=== PATIENT | male | born 1940 | race Caucasian/White ===

== ENCOUNTER → 2016-07-14 | Outpatient (CLI) | payer BC ==
[~2016-07-14] MED LIST: ATOR-26 PO; DIGO0.122 PO; FERR325T74 PO; GLIM1TAB PO; METF-384 PO; PRT40 PO; SERT-234 PO
[2016-07-14 12:46] LABS: BASO % 0.4 %; BASO ABS # 0.03 K/uL (0-0.2); COMPLETE YES; EOS % 3.9 %; HEMATOCRIT 42.2 % (42-52); IG% 0.4 %; LYMPH % 17.6 %; LYMPH ABS # 1.36 K/uL (1.2-3.4); MEAN CELL VOLUME 87.7 fL (80-100); MEAN CORPUSCULAR HEMOGLOBIN 29.3 pg (25-34); MEAN CORPUSCULAR HGB CONC 33.4 g/dl (32-36); MEAN PLATELET VOLUME 9.4 fL (7.4-10.4); MONO % 5.3 %; NEUT % 72.4 %; PLATELET COUNT 234 K/uL (130-400); RED BLOOD COUNT 4.81 M/uL (4.7-6.1); WHITE BLOOD COUNT 7.74 K/uL (4.8-10.8)
[2016-07-14 13:02] LABS: ESTIMATED AVERAGE GLUCOSE 163 mg/dl; HA1C FLAG Normal (Normal)
[2016-07-14 13:06] LABS: BLOOD UREA NITROGEN 16 mg/dl (7-18); BUN/CREATININE RATIO 14.8 (10-20); CALCIUM 9.9 mg/dl (8.5-10.1); CARBON DIOXIDE 26 mmol/L (21-32); CHLORIDE 103 mmol/L (98-107); GLUCOSE 157 mg/dl (70-99); POTASSIUM 4.6 mmol/L (3.5-5.1); SODIUM 139 mmol/L (136-145)
--- NOTE | 2016-07-21 06:23 | CODING QUERY MEDICAL NECESSITY ---
SUPPORTING DIAGNOSIS NEEDED A supporting diagnosis is required for the test/procedure performed on this patient in order for us to be reimbursed by the patient's insurance. Please provide a supporting diagnosis for the following test/procedure listed below next to the test name along with your signature. *If there is no additional diagnosis for this patient that would support the following test/procedure please document that below next to the test/procedure. Test(s)/Procedure(s) that require a supporting diagnosis: DOS 07/14 * Hba1c DIAGNOSIS: Provider Signature: Date: Thank you Corrine Oakes Health Information Management Once completed, please kindly fax back to [phone] For questions please call [phone]
== END | disposition home or self-care (01) ==
LOC: C.LABBFT 09:12
PROVIDERS: ATTEND Internal Medicine Geriatric Medicine
DX: I10 Essential (primary) hypertension (principal); R19.7 Diarrhea, unspecified; E55.9 Vitamin D deficiency, unspecified; E21.3 Hyperparathyroidism, unspecified; D64.9 Anemia, unspecified; E11.9 Type 2 diabetes mellitus without complications

== ENCOUNTER → 2016-11-16 | Outpatient (CLI) | payer BC ==
[~2016-11-16] MED LIST changes: +CHOL1000 PO; +FERR27TA5 PO; +GLIM4TAB2 PO; +LISI40TA PO; +LNX125 PO; +WARF2.5T8 PO
[2016-11-16 12:47] LABS: BASO % 0.3 %; BASO ABS # 0.02 K/uL (0-0.2); COMPLETE YES; EOS % 2.9 %; HEMATOCRIT 40.2 % (42-52); IG% 0.1 %; LYMPH % 17.3 %; LYMPH ABS # 1.19 K/uL (1.2-3.4); MEAN CELL VOLUME 90.3 fL (80-100); MEAN CORPUSCULAR HEMOGLOBIN 29.2 pg (25-34); MEAN CORPUSCULAR HGB CONC 32.3 g/dl (32-36); MEAN PLATELET VOLUME 9.6 fL (7.4-10.4); MONO % 5.1 %; NEUT % 74.3 %; PLATELET COUNT 207 K/uL (130-400); RED BLOOD COUNT 4.45 M/uL (4.7-6.1); WHITE BLOOD COUNT 6.89 K/uL (4.8-10.8)
[2016-11-16 13:15] LABS: ESTIMATED AVERAGE GLUCOSE 174 mg/dl; HA1C FLAG Normal (Normal)
[2016-11-16 13:39] LABS: BLOOD UREA NITROGEN 21 mg/dl (7-18); BUN/CREATININE RATIO 18.9 (10-20); CARBON DIOXIDE 25 mmol/L (21-32); CHLORIDE 107 mmol/L (98-107); GLUCOSE 289 mg/dl (70-99); POTASSIUM 5.1 mmol/L (3.5-5.1); SODIUM 138 mmol/L (136-145)
[2016-11-16 13:43] LABS: CALCIUM 9.9 mg/dl (8.5-10.1)
== END | disposition home or self-care (01) ==
LOC: C.LABBFT 09:46
PROVIDERS: ATTEND Internal Medicine Geriatric Medicine
DX: I48.2 Chronic atrial fibrillation (principal); Z79.01 Long term (current) use of anticoagulants; E11.9 Type 2 diabetes mellitus without complications

== ENCOUNTER → 2016-11-18 | Outpatient (CLI) | payer BC ==
[~2016-11-18] MED LIST changes: -CHOL1000 PO; -FERR27TA5 PO; -GLIM4TAB2 PO; -LISI40TA PO; -LNX125 PO; -WARF2.5T8 PO
== END | disposition home or self-care (01) ==
LOC: C.LABBFT 10:45
PROVIDERS: ATTEND Internal Medicine Geriatric Medicine
DX: I10 Essential (primary) hypertension (principal); E83.52 Hypercalcemia; E11.9 Type 2 diabetes mellitus without complications; D64.9 Anemia, unspecified; E21.3 Hyperparathyroidism, unspecified

== ENCOUNTER → 2017-01-15 | Outpatient (CLI) | payer BC | END | disposition home or self-care (01) | LOC: C.PATHSPEC 13:03 | PROVIDERS: ATTEND Dermatology | DX: L57.0 Actinic keratosis (principal) ==

== ENCOUNTER → 2017-03-03 | Outpatient (CLI) | payer BC ==
--- NOTE | 2017-03-03 09:42 | DIAGNOSTIC IMAGING REPORT ---
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 COMPARISON STUDY: Chest CT 09/09/2007. FINDINGS: Moderate right sternoclavicular joint osteoarthritis demonstrated by subchondral sclerosis, cartilage space narrowing, and marginal osteophytes. The left sternoclavicular joint is within normal limits. No subluxation. No fractures identified within the visualized clavicles. Poststernotomy changes. IMPRESSION: Moderate right sternoclavicular joint osteoarthritis. Electronically signed by: Federico Goldsmith M.D. 03/03/2017 9:41 AM Dictated Date/Time: 03/03/2017 9:37 AM
== END | disposition home or self-care (01) ==
LOC: C.RADBC 09:10
PROVIDERS: ATTEND Internal Medicine Geriatric Medicine
DX: M19.019 Primary osteoarthritis, unspecified shoulder (principal)

== ENCOUNTER → 2017-04-21 | Outpatient (CLI) | payer BC ==
[~2017-04-21] MED LIST changes: +CHOL1000 PO; +FERR27TA5 PO; +GLIM4TAB2 PO; +LISI40TA PO; +LNX125 PO; +WARF2.5T8 PO
[2017-04-21 13:18] LABS: BASO % 0.3 %; BASO ABS # 0.03 K/uL (0-0.2); COMPLETE YES; EOS % 3.2 %; IG% 0.2 %; LYMPH % 13.7 %; LYMPH ABS # 1.18 K/uL (1.2-3.4); MEAN CELL VOLUME 90.9 fL (80-100); MEAN CORPUSCULAR HEMOGLOBIN 29.9 pg (25-34); MEAN CORPUSCULAR HGB CONC 32.9 g/dl (32-36); MEAN PLATELET VOLUME 9.4 fL (7.4-10.4); MONO % 6.7 %; NEUT % 75.9 %; PLATELET COUNT 193 K/uL (130-400); RED BLOOD COUNT 4.51 M/uL (4.7-6.1); WHITE BLOOD COUNT 8.63 K/uL (4.8-10.8)
[2017-04-21 13:52] LABS: ESTIMATED AVERAGE GLUCOSE 163 mg/dl; HA1C FLAG Normal (Normal)
[2017-04-21 13:58] LABS: ALT/SGPT 34 U/L (12-78); AST/SGOT 21 U/L (15-37); BLOOD UREA NITROGEN 18 mg/dl (7-18); BUN/CREATININE RATIO 15.3 (10-20); CALCIUM 9.9 mg/dl (8.5-10.1); CARBON DIOXIDE 26 mmol/L (21-32); CHLORIDE 105 mmol/L (98-107); CHOLESTEROL 86 mg/dl (0-200); CREATININE 1.19 mg/dl (0.60-1.40); GLUCOSE 142 mg/dl (70-99); POTASSIUM 4.4 mmol/L (3.5-5.1); SODIUM 136 mmol/L (136-145); TRIGLYCERIDES 144 mg/dl (0-150); VERY LOW DENSITY LIPOPROT CALC 29 mg/dl
[2017-04-21 14:08] LABS: ALB/GLOB RATIO 1.1 (0.9-2); ALKALINE PHOSPHATASE 112 U/L (45-117); CHOLESTEROL/HDL RATIO 2.3; HDL CHOLESTEROL 38 mg/dl; LDL CHOLESTEROL CALCULATED 19 mg/dl
== END | disposition home or self-care (01) ==
LOC: C.LABBC 11:57
PROVIDERS: ATTEND Internal Medicine Geriatric Medicine
DX: I10 Essential (primary) hypertension (principal); G31.84 Mild cognitive impairment of uncertain or unknown etiology; D64.9 Anemia, unspecified; Z79.01 Long term (current) use of anticoagulants; I48.2 Chronic atrial fibrillation; E55.9 Vitamin D deficiency, unspecified; E11.9 Type 2 diabetes mellitus without complications

== ENCOUNTER → 2017-06-11 | Outpatient (CLI) | payer BC ==
[~2017-06-11] MED LIST changes: -DIGO0.122 PO; -FERR325T74 PO; -GLIM1TAB PO; -METF-384 PO; -PRT40 PO
[2017-06-11 16:39] LABS: INR 2.7 (0.9-1.1)
== END | disposition home or self-care (01) ==
LOC: C.LABBFT 13:25
PROVIDERS: ATTEND Internal Medicine Cardiovascular Disease
DX: I48.2 Chronic atrial fibrillation (principal)

== ENCOUNTER → 2017-06-23 | Day surgery (SDC) | payer BC ==
[2017-04-22 14:00] VITALS: Ht 170.2 cm; Wt 70.5 kg
[~2017-06-23] VITALS: Ht 170.2 cm; Wt 70.5 kg
[~2017-06-23] MED LIST changes: +500ML BSS 0.3ML EPI 1:1000PF IRRIG ONE; +ACETAMINOPHEN 325 MG TAB PO PRN; +AMVISC PLUS 0.8ML SYRINGE INT OCU ONE; +ATROPINE SULFATE 0.1 MG/ML 5ML SYR IV PRN; +AcetaZOLAMIDE 250 MG TAB PO SCH; +BETAXOLOL HCL 0.25% OP SUSP PER DROP CHARGE OPL SCH; +BRIMONIDINE TART 0.2% OP SOLN PER DROP CHARGE ONE; +BSS FLUSH ONE; +CYCLOPENTOLATE HCL 1% OP SOLN PER DROP CHARGE OPL SCH; +ENDOCOAT 0.85ML SYRINGE INT OCU ONE; +EpHEDrine SULFATE INJ 50 MG/ML AMP IV PRN; +EpINEphrine INJ 1MG/ML AMP 1 MG/ML AMP ONE; +LACTATED RINGER'S 1000ML 500 ML IV SCH; +LIDOCAINE 4% OP SOLN DROP CHARGE ONE; +LIDOCAINE 4% OP SOLN DROP CHARGE OPL SCH; +LIDOCAINE HCL 1% MPF 2 ML VIAL ONE; +MIDAZOLAM HCL 1 MG/ML 2ML VIAL ONE; +MIX: 4ML BSS 1ML EPI 1:1000 PF INSTIL ONE; +MOXIFLOXACIN OPH SOLN PER DROP CHARGE ONE; +MOXIFLOXACIN OPH SOLN PER DROP CHARGE OPL SCH; +OCUCOAT 1 ML SOLN IO ONE; +PHENYLEPHRINE HCL 2.5% OP SOLN PER DROP CHARGE OPL SCH; +POVIDONE-IODINE OP SOLN 30 ML BTL ONE; +PROPARACAINE 0.5% OP SOLN PER DROP CHARGE OPL SCH; +TOBRAMYCIN/DEXAMETHASONE OPH OINT PER APPLN CHARGE ONE; +TROPICAMIDE 1% OP SOLN PER DROP CHARGE OPL SCH
--- NOTE | 2017-06-23 07:25 | History & Physical Bridge - SC ---
H&P Re-Evaluation Bridge Note: I have examined the patient, reviewed the History & Physical and in the interval since the performance of the History & Physical I have noted the following changes of clinical significance: No changes noted
[2017-06-23] MEDS: TROPICAMIDE 1% OP SOLN PER DROP CHARGE OPL SCH ×2 (08:39→08:44)
[2017-06-23] MEDS: PHENYLEPHRINE HCL 2.5% OP SOLN PER DROP CHARGE OPL SCH ×2 (08:39→08:43)
[2017-06-23] MEDS: CYCLOPENTOLATE HCL 1% OP SOLN PER DROP CHARGE OPL SCH ×2 (08:40→08:45)
[2017-06-23] MEDS: MOXIFLOXACIN OPH SOLN PER DROP CHARGE OPL SCH ×2 (08:41→08:54)
--- NOTE | 2017-06-23 09:17 | [facility] Operative Report ---
Operative Report Date of Service Jun 23, 2017. Operative Report 1. PREOPERATIVE DIAGNOSIS: Senile nuclear cataract, left eye. 2. POSTOPERATIVE DIAGNOSIS: Senile nuclear cataract, left eye. 3. PROCEDURE: Phacoemulsification of left cataract with posterior chamber lens implant, type [employer], model MI60L, power +20.5 diopters. ANESTHESIA: Local standby. SURGEON: Dr. Alston. COMPLICATIONS: None. OPERATING TIME: 10 minutes. 4. OPERATION AND FINDINGS: DESCRIPTION OF PROCEDURE: The left pupil was dilated. The anesthetic was administered using a topical technique. The left eye was prepped and draped. A speculum was placed. A clear corneal incision was formed. The chamber was filled with Amvisc Plus and Endocoat. Epinephrine solution was used. A paracentesis was placed. A capsulorrhexis was performed. The nucleus was hydrodissected. The lens was removed with phacoemulsification. Time was 6.34 seconds. The aspiration unit was used to remove the cortex. The capsule was filled with Amvisc Plus. The lens implant was folded and placed into the capsule. The incision was hydrated. The Amvisc was aspirated. The wound was secure. The chamber was deep. The pupil was round. Brimonidine, TobraDex ointment and Vigamox solution were placed. The speculum was removed. The patient was returned to the Recovery Room in stable condition. I attest to the content of the Intraoperative Record and any orders documented therein. Any exceptions are noted below. The scribe's documentation has been prepared in my presence, under my direction and personally reviewed by me in its entirety. I confirm that the note above accurately reflects all work, treatment, procedures, and medical decision making performed by me. I personally scribed for Jean Alston M.D. (CB) on 06/23/17 at 09:17. Electronically submitted by Destiny Hooper ([email or web address]).
--- NOTE | 2017-06-23 09:20 | Discharge Instructions-SurgCtr ---
Discharge Instructions Date of Service Jun 23, 2017. Visit Reason for Visit: Cataract Left Eye Discharge Discharge Diagnosis / Problem: lens implant left implant Discharge Goals Goal(s): Improve function Activity Recommendations Activity Limitations: resume your previous activity Lifting Limitations: no more than 10 pounds Exercise/Sports Limitations: gradually increase as tolerated May Resume Sexual Activity: when tolerated Shower/Bathe: tomorrow Driving or Machine Use: resume 1 day after discharge Anesthesia . Post Anesthesia Instructions: If you have had General Anesthesia or IV Sedation: * Do not drive today. * Resume driving when surgeon permits. * Do not make important decisions or sign legal documents today. * Call surgeon for: 1. Temperature elevations greater than 101 degrees F. 2. Uncontrollable pain. 3. Excessive bleeding. 4. Persistent nausea and vomiting. 5. Medication intolerance (nausea, vomiting or rash). * For nausea and vomiting use only clear liquids such as: tea, soda, bouillon until nausea subsides, then gradually increase diet as tolerated. * If you have any concerns or questions, call your surgeon's office. If physician is unavailable and it is an emergency, call 911 or go to the nearest emergency room. . Instructions / Follow-Up Instructions / Follow-Up ACTIVITY RECOMMENDATIONS: * Light activities. * Mild irritation and blurred vision are common for the first few days. * You may walk outside, read, watch television. * Redness around the white part of the eye is common. MEDICATIONS: Resume previous medications unless instructed otherwise by your surgeon. * Take white Diamox (Acetazolamide) tablet at 1 pm today. Start all eye drops at 1 pm today: * Eye drops (today and tomorrow): Prednisone - one drop in operative eye every 3 hours while awake Ofloxacin - one drop in operative eye every 3 hours while awake SPECIAL CARE INSTRUCTIONS: * Tape plastic shield over eye to sleep at night. Call your doctor at with any concerns or problems. FOLLOW UP VISIT: Follow-up with Dr Alston at [facility] as scheduled. Diet Recommendations Home Diet: no limitations Procedures Procedures Performed: Left Cataract Phacoemulsification With Intraocular Lens Implant Pending Studies Studies pending at discharge: no Medical Emergencies . Who to Call and When: Medical Emergencies: If at any time you feel your situation is an emergency, please call 911 immediately. . Non-Emergent Contact Non-Emergency issues call your: Corporate Intern Call Non-Emergent contact if: your pain is not controlled [phone] . . "Provider Documentation" section prepared by Jean Alston. .
[2017-06-23 09:22] VITALS: TEMP 36.6
--- NOTE | 2017-06-23 09:33 | Anesthesia Progress Nt - [facility] ---
Anesthesia Post Op Note Date & Time Jun 23, 2017 at 09:33 Vital Signs Pain Intensity: 0 Vital Signs Past 12 Hours Date Time Temp Pulse Resp B/P (MAP) Pulse Ox O2 Delivery O2 Flow Rate FiO2 06/23/17 09:22 36.6 103 18 111/67 (82) 94 Room Air 06/23/17 08:29 36.5 84 16 122/68 (86) 97 Room Air Notes Mental Status: alert / awake / arousable, participated in evaluation Pt Amnestic to Procedure: Yes Nausea / Vomiting: adequately controlled Pain: adequately controlled Airway Patency, RR, SpO2: stable & adequate BP & HR: stable & adequate Hydration State: stable & adequate Anesthetic Complications: no major complications apparent
[2017-06-23 09:55] VITALS: BP 134/87; PULSE 98; O2SAT 97
== END | disposition home or self-care (01) ==
LOC: X.SURG 07:44
PROVIDERS: ATTEND Specialist
DX: H25.12 Age-related nuclear cataract, left eye (principal); E11.36 Type 2 diabetes mellitus with diabetic cataract; Z98.41 Cataract extraction status, right eye; E78.5 Hyperlipidemia, unspecified; I48.91 Unspecified atrial fibrillation; Z88.0 Allergy status to penicillin; Z95.1 Presence of aortocoronary bypass graft; Z87.891 Personal history of nicotine dependence; Z79.899 Other long term (current) drug therapy; Z79.01 Long term (current) use of anticoagulants

== ENCOUNTER → 2017-12-30 | Outpatient (CLI) | payer BC ==
[~2017-12-30] MED LIST changes: -500ML BSS 0.3ML EPI 1:1000PF IRRIG ONE; -ACETAMINOPHEN 325 MG TAB PO PRN; -AMVISC PLUS 0.8ML SYRINGE INT OCU ONE; -ATROPINE SULFATE 0.1 MG/ML 5ML SYR IV PRN; -AcetaZOLAMIDE 250 MG TAB PO SCH; -BETAXOLOL HCL 0.25% OP SUSP PER DROP CHARGE OPL SCH; -BRIMONIDINE TART 0.2% OP SOLN PER DROP CHARGE ONE; -BSS FLUSH ONE; -CYCLOPENTOLATE HCL 1% OP SOLN PER DROP CHARGE OPL SCH; -ENDOCOAT 0.85ML SYRINGE INT OCU ONE; -EpHEDrine SULFATE INJ 50 MG/ML AMP IV PRN; -EpINEphrine INJ 1MG/ML AMP 1 MG/ML AMP ONE; -LACTATED RINGER'S 1000ML 500 ML IV SCH; -LIDOCAINE 4% OP SOLN DROP CHARGE ONE; -LIDOCAINE 4% OP SOLN DROP CHARGE OPL SCH; -LIDOCAINE HCL 1% MPF 2 ML VIAL ONE; -MIDAZOLAM HCL 1 MG/ML 2ML VIAL ONE; -MIX: 4ML BSS 1ML EPI 1:1000 PF INSTIL ONE; -MOXIFLOXACIN OPH SOLN PER DROP CHARGE ONE; -MOXIFLOXACIN OPH SOLN PER DROP CHARGE OPL SCH; -OCUCOAT 1 ML SOLN IO ONE; -PHENYLEPHRINE HCL 2.5% OP SOLN PER DROP CHARGE OPL SCH; -POVIDONE-IODINE OP SOLN 30 ML BTL ONE; -PROPARACAINE 0.5% OP SOLN PER DROP CHARGE OPL SCH; -TOBRAMYCIN/DEXAMETHASONE OPH OINT PER APPLN CHARGE ONE; -TROPICAMIDE 1% OP SOLN PER DROP CHARGE OPL SCH
== END | disposition home or self-care (01) ==
LOC: C.LABBFT 08:14
PROVIDERS: ATTEND Internal Medicine Cardiovascular Disease
DX: E78.5 Hyperlipidemia, unspecified (principal)

== ENCOUNTER 2020-11-02 10:11 | Inpatient (IN) ==
[2020-11-02] MEDS ORDERED: SODIUM CHLORIDE 0.9% 500 ML IV STA (10:41)
[2020-11-02 11:18] LABS: Basophils # (auto) 0.02 K/uL (0-0.2); Basophils % (auto) 0.3 %; Eosinophils # (auto) 0.34 K/uL (0-0.5); Eosinophils % (auto) 4.6 %; Hematocrit (blood only) 36.6 % (42-52); Hemoglobin 12.5 g/dL (14.0-18.0); Immature Granulocytes # (auto) 0.04 K/uL (0.00-0.02); Immature Granulocytes % (auto) 0.5 %; Lymphocytes # (auto) 1.15 K/uL (1.2-3.4); Lymphocytes % (auto) 15.7 %; Mean Corpuscular Hemoglobin 30.5 pg (25-34); Mean Corpuscular Hgb Conc 34.2 g/dL (32-36); Mean Corpuscular Volume 89.3 fL (80-100); Mean Platelet Volume 9.1 fL (7.4-10.4); Monocytes # (auto) 0.34 K/uL (0.11-0.59); Monocytes % (auto) 4.6 %; Neutrophils # (auto) 5.43 K/uL (1.4-6.5); Neutrophils % (auto) 74.3 %; Platelet Count 202 K/uL (130-400); RDW Coefficient of Variation 12.2 % (11.5-14.5); RDW Standard Deviation 39.5 fL (36.4-46.3); White Blood Count 7.32 K/uL (4.8-10.8)
--- NOTE | 2020-11-02 11:21 | XRay Report ---
XR chest 1V portable CLINICAL HISTORY: confusion, falls COMPARISON STUDY: 04/12/2019 FINDINGS: There are postsurgical changes of midline sternotomy and aortic valve replacement. Heart is mildly enlarged. There is slight interstitial prominence without evidence of overt failure. There is no lobar consolidation. There are no pleural effusions. Arthritic changes are present within the joaquina ulders.[ IMPRESSION: No active disease in the chest. ACT 112: Negative or not required by law. Electronically signed by: Cayetano Gonzalez M.D. 11/02/2020 11:19 AM
--- NOTE | 2020-11-02 11:32 | CT Scan Report ---
CT head/brain wo con CLINICAL HISTORY: fall, confusion COMPARISON STUDY: 04/12/2019 TECHNIQUE: Axial CT of the brain is performed from the vertex to the skull base. IV contrast was not administered for this examination. A dose lowering technique was utilized adhering to the principles of ALARA. CT DOSE: 537.48 mGy.cm FINDINGS: No intra or extra-axial mass lesions are visualized. There is no CT evidence of acute cortical infarc tion. There is no evidence of midline shift. There is no acute hemorrhage. No calvarial fractures ar e visualized. There are patchy white matter hypodensities likely on a small vessel basis. There are basal ganglia l acunar infarcts. There is equivocal lacunar infarct within the right thalamus versus partial volume a veraging with the lateral ventricle. 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 There is no evidence of pathologic ventricular dilatation. There is no evidence of acute sinusitis IMPRESSION: 1. No acute intracranial findings. 2. Multifocal lacunar infarcts 3. If there is pedicle concern over the presence of an acute infarction, an MRI could be obtained in follow-up. ACT 112: Negative or not required by law. Electronically signed by: Cayetano Gonzalez M.D. 11/02/2020 11:30 AM
[2020-11-02 11:44] LABS: Appearance Urine Clear (Clear); Bacteria Urine Automated Negative (Negative); Bilirubin Urine Negative (Negative); Blood Urine Negative (Negative); Cast Urine Automated 0 /lpf (0-5); Color Urine Yellow; Glucose Urine UA 3+ (Negative); Ketones Urine Negative (Negative); Leukocyte Esterase Urine Trace (Negative); Nitrite Urine Negative (Negative); Protein Urine Negative (Negative); RBC Urine Automated 0-4 /hpf (0-4); Specific Gravity Urine 1.027 (1.000-1.030); Urobilinogen Urine Negative (Negative)
[2020-11-02 11:50] LABS: Albumin Globulin Ratio 0.9 (0.9-2); Albumin Level 3.4 gm/dl (3.4-5.0); BUN Creatinine Ratio 24.3 (10-20); Bilirubin,Total 0.4 mg/dl (0.2-1); Calcium 9.9 mg/dl (8.5-10.1); Creatinine Clr Calc Pharmacy 31.3 ml/min; Est GFR (African American) 44.5 ml/min; Est GFR (Non-African American) 38.4 ml/min; Magnesium 1.9 mg/dl (1.8-2.4); Potassium 4.8 mmol/L (3.5-5.1); Thyroid Stimulating Hormone 1.31 uIu/ml (0.300-4.500); Total Protein 7.4 gm/dl (6.4-8.2)
[2020-11-02 12:03] LABS: Beta-Hydroxybutyrate 1.19 mg/dl (0.2-2.81)
--- NOTE | 2020-11-02 12:41 | Emergency Department Note ---
Impression & Plan Multi-infarct dementia, CKD (chronic kidney disease), Hyperglycemia due to type 2 diabetes mellitus, On apixaban therapy ED Provider Note NAME: ELVA SPENCE AGE: 80 SEX: M ARRIVES VIA: Walk-In INFORMANT: Patient, ED PROVIDER(S): Korey Espino MD CHIEF COMPLAINT: Confusion, recurrent falls, unsafe at home. PLAN: Disposition: Admit MEDICAL DECISION MAKING: The patient is a pleasant 80-year-old gentleman with a past medical history of dementia, hypertension, hyperlipidemia, atrial fibrillation on Eliquis, cerebral atherosclerosis, who presents to the emergency department accompanied by his son concern for worsening dementia over the past couple of weeks where they report he has been walking out of his apartment at night and has fallen couple times this week and has to call family to go pick them up. This morning his brother found the patient walking out of the apartment again thinking he had to go to work. The patient is alert and oriented to self and knows where he is but admits he is confused about these situations and does not recall them. Otherwise is no report of any fevers, chills, cough, congestion, GI or symptoms. The son is concerned that he has a safety risk living by himself at this time. He and his four other siblings live in the area feel the patient needs to be in a facility able to care for him with his dementia. On arrival the patient is no distress, afebrile stable vital signs. He is pleasantly confused but alert and oriented to self and place. He has no focal neurologic deficits. EKG shows sinus rhythm with incomplete left bundle branch block with ST and T wave abnormality that is similar to prior. No overt ST elevation. no sgarbossa criteria. WBC and platelets within normal limits. H/H 12.5/36.6 without recent values for comparison. Chemistry without metabolic acidosis. Creatinine 1.6, proximal to prior range of values with BUN/creatinine> 20 suggestive of component of dehydration. Initial BSG was 406 in the setting of the patient's admitted dietary indiscretions. Repeat PSG following IV fluids was 350. Electrolytes without significant abnormality. TSH within normal limits. UA without convincing evidence of infection with epithelial cells present. COVID-19 RNA, RADHA test was negative. CT of the head was performed and demonstrates small vessel disease as well as prior basal ganglion and cerebellar lacunar infarcts with question of new lacunar infarct within the right thalamus. Upon further discussion with the patient's son does seem that the patient's worsening de mentia/confusion and ambulatory dysfunction have been overtly noticeable in the past 2 weeks and so given the patient's imaging which raises suspicion for possible new CVA reasonable to meet the patient for further evaluation. Suspect patient may need PT OT and further discussion with family regarding placement given their concerns for safety and report of their families inability to appropriately safety plan. The son and the patient, albeit reluctantly, agrees with plan for admission. Will defer additional treatment of glucose to admitting team. Case was discussed with Dr. Clements, [facility] hospitalist, who will evaluate the patient for admission. Triage Nursing notes reviewed and agree them. Prior medical records reviewed Vital Signs: reviewed and remarkable for no significant abnormalities Differential diagnosis: Infection, dehydration, metabolic abnormality, hypo/hyperglycemia, electrolyte disturbance, anemia, hypoxia, cardiac sources, intracerebral event, toxicologic, neurologic, as well as other pathologies. ER treatment provided: See below. Diagnostics interpreted by me: ECG: Sinus rhythm with occasional PVCs, 85 bpm, incomplete left bundle branch block, ST and T wave abnormality, no overt ST elevation/no sgarbossa criteria. Cardiac Monitoring: An order for continuous cardiac monitoring was placed and demonstrated Sinus rhythm with occasional PVCs, 85 bpm,. Laboratory studies: See below Imaging studies: See below Consultation(s): Case was discussed with Dr. Clements, [facility] hospitalist, who will evaluate the patient for admission. HPI: The patient is a pleasant 80-year-old gentleman with a past medical history of dementia, hypertension, hyperlipidemia, atrial fibrillation on Eliquis, ce rebral atherosclerosis, who presents to the emergency department accompanied by his son concern for worsening dementia over the past couple of weeks where they report he has been walking out of his apartment at night and has fallen couple times this week and has to call family to go pick them up. This morning his brother found the patient walking out of the apartment again thinking he had to go to work. The patient is alert and oriented to self and knows where he is but admits he is confused about these situations and does not recall them. Otherwise is no report of any fevers, chills, cough, congestion, GI or symptoms. The son is concerned that he has a safety risk living by himself at this time. He and his four other siblings live in the area feel the patient needs to be in a facility able to care for him with his dementia. ROS: See above HPI for pertinent positives & negatives. A total of 10 systems reviewed and were otherwise negative. PAST MEDICAL HISTORY:See Below PAST SURGICAL HISTORY:See Below FAMILY HISTORY:See Below SOCIAL HISTORY:See Below HOME MEDICATIONS:See Below ALLERGIES:See Below VITALS:See Below PHYSICAL EXAMINATION: GENERAL: Awake, alert, well-appearing, in no distress HENT: Normocephalic, atraumatic. Oropharynx with dry mucous membranes and otherwise unremarkable. EYES: Normal conjunctiva. Sclera non-icteric. EOMI. No nystamgus. PEARRL. NECK: Supple. No nuchal rigidity. FROM. No JVD. RESPIRATORY: Clear to auscultation. CARDIAC: Regular rate, normal rhythm. Extremities warm and well perfused. Pulses equal. ABDOMEN: Soft, non-distended. No tenderness to palpation. No rebound or guarding. No masses. RECTAL: Deferred. MUSCULOSKELETAL: Chest examination reveals no tenderness. The back is symmetrical on inspection without obvious abnormality. There is no CVA tenderness to palpation. No joint edema. LOWER EXTREMITIES: Calves are equal size bilaterally and non-tender. No edema. No discoloration. NEURO: Alert to self and place. Speech is fluent. Pleasantly confused. No overt focal sensory or motor deficits noted. 5/5 strength and SILT x 4 extremities. Intact finger to nose. SKIN: No rash or jaundice noted. Korey Espino MD Past Med/Surg History Medical History (Updated 11/03/20 @ 01:36 by Korey Espino MD) Anemia CAD (coronary artery disease) Cerebral atherosclerosis Chronic anticoagulation Dyslipidemia Gastroesophageal reflux disease GI (gastrointestinal bleed) Hypercalcemia Hyperparathyroidism Hypertension Insomnia Lower back pain Mild cognitive impairment Osteoarthritis of sternoclavicular joint Permanent atrial fibrillation 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 Vitamin D deficiency Surgical History 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) S/P aortic valve replacement S/P CABG (coronary artery bypass graft) S/P cataract surgery S/P tonsillectomy S/P total knee arthroplasty Family History Mother Coronary heart disease Myocardial infarction Father Coronary heart disease Myocardial infarction Brother Dementia Denies family history of Ovarian cancer Prostate cancer Breast cancer Colorectal cancer Social History Smoking Status: Never smoker Age Quit Using Tobacco: 42; Second Hand Exposure: No; Hx Alcohol Use: Yes Hx Substance Use: No Preferred Language: Grenadian Communication Ability: Effective Visual Impairment: No Limitations Hearing Ability: Normal Laborer/Key Man Required: No Beliefs That Will Affect Care: None marital status: / Current Living Situation: Alone Current Living Situation Comment: Home alone current occupational status: retired Feels Safe at Home: Yes Safety Concerns: Feels Safe At This Time Childhood Exposure to Second-Hand Smoke: Yes during the past year weight has: remained stable Dental Care, Regularly: No Physical Activity Frequency: Daily Seatbelt Use: always Sunscreen Use: No Assistive Devices: Denture - Upper, Denture - Lower and Glasses Allergies Allergies Allergy/AdvReac Type Severity Reaction Status Date / Time Penicillins Allergy Mild Rash Verified 11/02/20 11:38 metformin Allergy Unknown Diarrhea Verified 11/02/20 11:38 metoprolol Allergy Unknown Confusion Verified 11/02/20 11:38 zolpidem [From Ambien] Allergy Unknown Verified 11/02/20 11:38 Home Meds Home Medications Medication Instructions Recorded Confirmed acetaminophen 500 mg tablet 1,000 mg PO TID PRN #90 tab 12/20/18 11/02/20 blood sugar diagnostic #10 ea 12/20/18 04/24/20 cholecalciferol (vitamin D3) 25 1,000 units PO QAM cap 12/20/18 11/02/20 mcg (1,000 unit) capsule ferrous sulfate 325 mg (65 mg 325 mg PO QAM tab 12/20/18 11/02/20 iron) tablet lancets #50 ea 12/20/18 07/25/20 atorvastatin 40 mg PO QAM 11/02/20 11/02/20 glipizide 20 mg PO QAM 11/02/20 11/02/20 sertraline 100 mg PO QAM 11/02/20 11/02/20 Previous Rx's Medication Instructions Recorded lisinopril 40 mg tablet 40 mg PO QAM #90 tab 12/18/19 sitagliptin 100 mg tablet 100 mg PO QAM #30 tab 03/21/20 apixaban 2.5 mg tablet 2.5 mg PO BID #60 tab 04/22/20 digoxin 125 mcg (0.125 mg) tablet 125 mcg PO QAM #90 tab 04/24/20 Results & Data (ED) Vital Signs Vital Signs - 24 hr 11/02/20 10:13 11/02/20 11:06 11/02/20 11:10 Temperature 36.9 C Temperature Source Temporal Artery Scan Pulse Rate 93 H 78 82 Pulse Rate from SpO2 Sensor 79 82 Pulse Rhythm Regular Pulse Strength Normal Respiratory Rate 18 21 25 H Respiratory Effort / Characteristics Non-Labored Spontaneous Respiratory Depth Normal Respiratory Pattern Regular Blood Pressure 139/65 149/68 H Blood Pressure Mean 89 95 Blood Pressure Position Sitting Pulse Oximetry 97 94 94 Oxygen Delivery Method Room Air Room Air Room Air Sepsis Recent Fever Within 48 Hours No Sepsis New/Unexplained Change in Mental Status N/A Sepsis Action Taken by Nursing No Action Required 11/02/20 11:30 11/02/20 11:31 11/02/20 11:32 Temperature Temperature Source Pulse Rate 88 86 84 Pulse Rate from SpO2 Sensor 87 86 84 Pulse Rhythm Pulse Strength Respiratory Rate 21 17 20 Respiratory Effort / Characteristics Respiratory Depth Respiratory Pattern Blood Pressure 157/72 H Blood Pressure Mean 100 Blood Pressure Position Pulse Oximetry 99 97 97 Oxygen Delivery Method Room Air Room Air Room Air Sepsis Recent Fever Within 48 Hours Sepsis New/Unexplained Change in Mental Status Sepsis Action Taken by Nursing 11/02/20 11:36 11/02/20 12:00 11/02/20 12:01 Temperature Temperature Source Pulse Rate 82 86 Pulse Rate from SpO2 Sensor 82 84 Pulse Rhythm Pulse Strength Respiratory Rate 22 21 Respiratory Effort / Characteristics Respiratory Depth Respiratory Pattern Blood Pressure 127/66 Blood Pressure Mean 86 Blood Pressure Position Pulse Oximetry 97 95 95 Oxygen Delivery Method Room Air Room Air Room Air Sepsis Recent Fever Within 48 Hours Sepsis New/Unexplained Change in Mental Status Sepsis Action Taken by Nursing 11/02/20 12:32 11/02/20 12:33 11/02/20 12:34 Temperature Temperature Source Pulse Rate 79 82 82 Pulse Rate from SpO2 Sensor 76 87 86 Pulse Rhythm Pulse Strength Respiratory Rate 23 20 20 Respiratory Effort / Characteristics Respiratory Depth Respiratory Pattern Blood Pressure 161/72 H Blood Pressure Mean 101 Blood Pressure Position Pulse Oximetry 97 97 97 Oxygen Delivery Method Sepsis Recent Fever Within 48 Hours Sepsis New/Unexplained Change in Mental Status Sepsis Action Taken by Nursing 11/02/20 13:00 11/02/20 13:01 Temperature Temperature Source Pulse Rate 78 88 Pulse Rate from SpO2 Sensor 83 81 Pulse Rhythm Pulse Strength Respiratory Rate 13 19 Respiratory Effort / Characteristics Respiratory Depth Respiratory Pattern Blood Pressure 124/67 Blood Pressure Mean 86 Blood Pressure Position Pulse Oximetry 97 97 Oxygen Delivery Method Sepsis Recent Fever Within 48 Hours Sepsis New/Unexplained Change in Mental Status Sepsis Action Taken by Nursing Laboratory Data Attestation: I reviewed the patient's lab results. Result diagrams: 11/02/20 11:03 11/02/20 11:03 Lab Results 11/02/20 11/02/20 11/02/20 Range/Units 11:03 11:03 11:30 WBC 7.32 (4.8-10.8) K/uL RBC 4.10 L (4.7-6.1) M/uL Hgb 12.5 L (14.0-18.0) g/dL Hct 36.6 L (42-52) % MCV 89.3 (80-100) fL MCH 30.5 (25-34) pg MCHC 34.2 (32-36) g/dL RDW Std Deviation 39.5 (36.4-46.3) fL RDW Coeff of Karlos 12.2 (11.5-14.5) % Plt Count 202 (130-400) K/uL MPV 9.1 (7.4-10.4) fL Immature Gran % (Auto) 0.5 % Neut % (Auto) 74.3 % Lymph % (Auto) 15.7 % Hood % (Auto) 4.6 % Eos % (Auto) 4.6 % Baso % (Auto) 0.3 % Neut # (Auto) 5.43 (1.4-6.5) K/uL Lymph # (Auto) 1.15 L (1.2-3.4) K/uL Hood # (Auto) 0.34 (0.11-0.59) K/uL Eos # (Auto) 0.34 (0-0.5) K/uL Baso # (Auto) 0.02 (0-0.2) K/uL Immature Gran # (Auto) 0.04 H (0.00-0.02) K/uL Sodium 133 L (136-145) mmol/L Potassium 4.8 (3.5-5.1) mmol/L Chloride 101 (98-107) mmol/L Carbon Dioxide 25 (21-32) mmol/L Anion Gap 7.0 (3-11) BUN 40 H (7-18) mg/dl Creatinine 1.64 H (0.6-1.4) mg/dl Est Cr Clr Drug Dosing 31.3 ml/min Est GFR ( Amer) 44.5 ml/min Est GFR (Non-Af Amer) 38.4 ml/min BUN/Creatinine Ratio 24.3 H (10-20) Glucose 406 H* (70-99) mg/dl POC Glucose (70-99) mg/dl Calcium 9.9 (8.5-10.1) mg/dl Phosphorus 3.0 (2.5-4.9) mg/dl Magnesium 1.9 (1.8-2.4) mg/dl Total Bilirubin 0.4 (0.2-1) mg/dl AST 16 (15-37) U/L ALT 20 (12-78) U/L Alkaline Phosphatase 119 H (45-117) U/L Troponin I (0-0.045) ng/ml Total Protein 7.4 (6.4-8.2) gm/dl Albumin 3.4 (3.4-5.0) gm/dl Globulin 4.0 (2.5-4.0) gm/dl Albumin/Globulin Ratio 0.9 (0.9-2) Beta-Hydroxybutyric Acd 1.19 (0.2-2.81) mg/dl TSH 1.310 (0.300-4.500) uIu/ml Urine Color Yellow Urine Appearance Clear (Clear) Urine pH 5.0 (4.5-7.5) Ur Specific [place] 1.027 (1.000-1.030) Urine Protein Negative (Negative) Urine Glucose (UA) 3+ H (Negative) Urine Ketones Negative (Negative) Urine Blood Negative (Negative) Urine Nitrite Negative (Negative) Urine Bilirubin Negative (Negative) Urine Urobilinogen Negative (Negative) Ur Leukocyte Esterase Trace H (Negative) Urine WBC (Auto) 5-10 H (0-5) /hpf Urine RBC (Auto) 0-4 (0-4) /hpf U Hyaline Cast (Auto) 0 (0-5) /lpf U Epithel Cells (Auto) 10-20 H (0-5) /lpf Urine Bacteria (Auto) Negative (Negative) COVID-19 Eval Order SARS-CoV-2, RNA, NAAT (NEGATIVE) 11/02/20 11/02/20 11/02/20 Range/Units 11:35 11:35 12:25 WBC (4.8-10.8) K/uL RBC (4.7-6.1) M/uL Hgb (14.0-18.0) g/dL Hct (42-52) % MCV (80-100) fL MCH (25-34) pg MCHC (32-36) g/dL RDW Std Deviation (36.4-46.3) fL RDW Coeff of Karlos (11.5-14.5) % Plt Count (130-400) K/uL MPV (7.4-10.4) fL Immature Gran % (Auto) % Neut % (Auto) % Lymph % (Auto) % Hood % (Auto) % Eos % (Auto) % Baso % (Auto) % Neut # (Auto) (1.4-6.5) K/uL Lymph # (Auto) (1.2-3.4) K/uL Hood # (Auto) (0.11-0.59) K/uL Eos # (Auto) (0-0.5) K/uL Baso # (Auto) (0-0.2) K/uL Immature Gran # (Auto) (0.00-0.02) K/uL Sodium (136-145) mmol/L Potassium (3.5-5.1) mmol/L Chloride (98-107) mmol/L Carbon Dioxide (21-32) mmol/L Anion Gap (3-11) BUN (7-18) mg/dl Creatinine (0.6-1.4) mg/dl Est Cr Clr Drug Dosing ml/min Est GFR ( Amer) ml/min Est GFR (Non-Af Amer) ml/min BUN/Creatinine Ratio (10-20) Glucose (70-99) mg/dl POC Glucose 351 H* (70-99) mg/dl Calcium (8.5-10.1) mg/dl Phosphorus (2.5-4.9) mg/dl Magnesium (1.8-2.4) mg/dl Total Bilirubin (0.2-1) mg/dl AST (15-37) U/L ALT (12-78) U/L Alkaline Phosphatase (45-117) U/L Troponin I (0-0.045) ng/ml Total Protein (6.4-8.2) gm/dl Albumin (3.4-5.0) gm/dl Globulin (2.5-4.0) gm/dl Albumin/Globulin Ratio (0.9-2) Beta-Hydroxybutyric Acd (0.2-2.81) mg/dl TSH (0.300-4.500) uIu/ml Urine Color Urine Appearance (Clear) Urine pH (4.5-7.5) Ur Specific [place] (1.000-1.030) Urine Protein (Negative) Urine Glucose (UA) (Negative) Urine Ketones (Negative) Urine Blood (Negative) Urine Nitrite (Negative) Urine Bilirubin (Negative) Urine Urobilinogen (Negative) Ur Leukocyte Esterase (Negative) Urine WBC (Auto) (0-5) /hpf Urine RBC (Auto) (0-4) /hpf U Hyaline Cast (Auto) (0-5) /lpf U Epithel Cells (Auto) (0-5) /lpf Urine Bacteria (Auto) (Negative) COVID-19 Eval Order [facility] SARS-CoV-2, RNA, NAAT NEGATIVE (NEGATIVE) 11/02/20 Range/Units 12:29 WBC (4.8-10.8) K/uL RBC (4.7-6.1) M/uL Hgb (14.0-18.0) g/dL Hct (42-52) % MCV (80-100) fL MCH (25-34) pg MCHC (32-36) g/dL RDW Std Deviation (36.4-46.3) fL RDW Coeff of Karlos (11.5-14.5) % Plt Count (130-400) K/uL MPV (7.4-10.4) fL Immature Gran % (Auto) % Neut % (Auto) % Lymph % (Auto) % Hood % (Auto) % Eos % (Auto) % Baso % (Auto) % Neut # (Auto) (1.4-6.5) K/uL Lymph # (Auto) (1.2-3.4) K/uL Hood # (Auto) (0.11-0.59) K/uL Eos # (Auto) (0-0.5) K/uL Baso # (Auto) (0-0.2) K/uL Immature Gran # (Auto) (0.00-0.02) K/uL Sodium (136-145) mmol/L Potassium (3.5-5.1) mmol/L Chloride (98-107) mmol/L Carbon Dioxide (21-32) mmol/L Anion Gap (3-11) BUN (7-18) mg/dl Creatinine (0.6-1.4) mg/dl Est Cr Clr Drug Dosing ml/min Est GFR ( Amer) ml/min Est GFR (Non-Af Amer) ml/min BUN/Creatinine Ratio (10-20) Glucose (70-99) mg/dl POC Glucose (70-99) mg/dl Calcium (8.5-10.1) mg/dl Phosphorus (2.5-4.9) mg/dl Magnesium (1.8-2.4) mg/dl Total Bilirubin (0.2-1) mg/dl AST (15-37) U/L ALT (12-78) U/L Alkaline Phosphatase (45-117) U/L Troponin I 0.017 (0-0.045) ng/ml Total Protein (6.4-8.2) gm/dl Albumin (3.4-5.0) gm/dl Globulin (2.5-4.0) gm/dl Albumin/Globulin Ratio (0.9-2) Beta-Hydroxybutyric Acd (0.2-2.81) mg/dl TSH (0.300-4.500) uIu/ml Urine Color Urine Appearance (Clear) Urine pH (4.5-7.5) Ur Specific [place] (1.000-1.030) Urine Protein (Negative) Urine Glucose (UA) (Negative) Urine Ketones (Negative) Urine Blood (Negative) Urine Nitrite (Negative) Urine Bilirubin (Negative) Urine Urobilinogen (Negative) Ur Leukocyte Esterase (Negative) Urine WBC (Auto) (0-5) /hpf Urine RBC (Auto) (0-4) /hpf U Hyaline Cast (Auto) (0-5) /lpf U Epithel Cells (Auto) (0-5) /lpf Urine Bacteria (Auto) (Negative) COVID-19 Eval Order SARS-CoV-2, RNA, NAAT (NEGATIVE) Administered Medications Apixaban (Apixaban 2.5 Mg Tab) 2.5 mg PO BID JSAON Stop: 12/02/20 20:59 Last Admin: 11/02/20 20:44 Dose: Not Given Documented by: [id number] Insulin Aspart (Insulin Aspart 100 Units/Ml 3 Ml Pen) 0 units SC ACHS JASON Stop: 12/02/20 16:29 Last Admin: 11/02/20 20:13 Dose: 2 units Documented by: [id number] Cosigned by: [id number] Admin: 11/02/20 17:44 Dose: 6 units Documented by: [id number] Cosigned by: [id number] Insulin Aspart (Insulin Aspart 100 Units/Ml 3 Ml Pen) 0 units SC 0000,0400 JASON Stop: 11/03/20 04:01 Last Admin: 11/02/20 23:22 Dose: 1 units Documented by: [id number] Cosigned by: [id number] Discontinued Medications Haloperidol Lactate (Haloperidol Lactate 5 Mg/Ml 1 Ml Vial) 1 mg IV NOW STA Stop: 11/02/20 18:48 Last Admin: 11/02/20 19:04 Dose: 1 mg Documented by: [id number] Sodium Chloride (Nss) 500 mls @ 999 mls/hr IV .Q31M STA Stop: 11/02/20 11:11 Last Infusion: 11/02/20 12:02 Dose: 0 mls/hr Documented by: [id number] Admin: 11/02/20 11:05 Dose: 999 mls/hr Documented by: [id number] Lorazepam (Lorazepam 0.5 Mg Tab) 0.5 mg PO NOW STA Stop: 11/02/20 16:47 Last Admin: 11/02/20 17:43 Dose: Not Given Documented by: [id number] Lorazepam (Lorazepam 0.5 Mg Tab) Confirm Administered Dose 0.5 mg .ROUTE .STK- MED ONE Stop: 11/02/20 16:51 Last Admin: 11/02/20 16:52 Dose: 0.5 mg Documented by: [id number] Imaging Data Radiologist's Impression: Chest X-Ray 11/02/20 10:42 XR chest 1V portable CLINICAL HISTORY: confusion, falls COMPARISON STUDY: 04/12/2019 FINDINGS: There are postsurgical changes of midline sternotomy and aortic valve replacement. Heart is mildly enlarged. There is slight interstitial prominence without evidence of overt failure. There is no lobar consolidation. There are no pleural effusions. Arthritic changes are present within the shoulders.[ IMPRESSION: No active disease in the chest. ACT 112: Negative or not required by law. Electronically signed by: Cayetano Gonzalez M.D. 11/02/2020 11:[address] 11/02/20 10:44 CT head/brain wo con CLINICAL HISTORY: fall, confusion COMPARISON STUDY: 04/12/2019 TECHNIQUE: Axial CT of the brain is performed from the vertex to the skull base. IV contrast was not administered for this examination. A dose lowering technique was utilized adhering to the principles of ALARA. CT DOSE: 537.48 mGy.cm FINDINGS: No intra or extra-axial mass lesions are visualized. There is no CT evidence of acute cortical infarction. There is no evidence of midline shift. There is no ac kadi hemorrhage. No calvarial fractures are visualized. There are patchy white matter hypodensities likely on a small vessel basis. There are basal ganglia lacunar infarcts. There is equivocal lacunar infarct within the right thalamus versus partial volume averaging with the lateral april tricle. 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 There is no evidence of pathologic ventricular dilatation. There is no evidence of acute sinusitis IMPRESSION: 1. No acute intracranial findings. 2. Multifocal lacunar infarcts 3. If there is pedicle concern over the presence of an acute infarction, an MRI could be obtained in follow-up. ACT 112: Negative or not required by law. Electronically signed by: Cayetano Gonzalez M.D. 11/02/2020 11:30 AM Discharge Plan Visit Data Chief Complaint: Fall Stated Complaint: FALL x3,LEAVING HOUSE WITHOUT ANYONE KNOWING ED Provider: Korey Espino Discharge Problem: Multi-infarct dementia, CKD (chronic kidney disease), Hyperglycemia due to type 2 diabetes mellitus, On apixaban therapy Patient Disposition: Admitted As Inpatient Discharge Instructions Interventions: ED Discharge Assessment Last Done: 11/02/20 15:39 Discharge Problem: Multi-infarct dementia Qualifiers: Dementia behavioral disturbance: with behavioral disturbance Qualified Code(s): F01.51 - Vascular dementia with behavioral disturbance CKD (chronic kidney disease) Qualifiers: Chronic kidney disease stage: unspecified stage Qualified Code(s): N18.9 - Chronic kidney disease, unspecified Hyperglycemia due to type 2 diabetes mellitus Qualifiers: Diabetes mellitus prison insulin use: without terminal system operator use Qualified Code(s): E11.65 - Type 2 diabetes mellitus with hyperglycemia
--- NOTE | 2020-11-02 13:03 | History & Physical Report ---
Date of Service November 02, 2020 Assessment & Plan (1) Multi-infarct dementia: Patient CT scan and history consistent with worsening multi-infarct dementia Will admit patient to monitored bed Check MRI of the brain Check 2D echo Will start low-dose aspirin. Consider Plavix as well Patient has atrial fibrillation and is on Eliquis, will continue this for now PT/OT evaluation Is neurology to evaluate further recommendation (2) Dysphagia: Son mentioned that the patient is having some swallowing difficulty. Patient is denying this We will ask speech to evaluate Dental soft diet for now (3) Permanent atrial fibrillation: This appears to be paroxysmal atrial fibrillation the patient is currently in normal sinus rhythm For now, will continue Eliquis 2.5 mg twice daily. There may be issues with compliance with this PT/OT evaluation as above, suspect patient may be a significant fall risk and will have to reevaluate whether to continue this medication (4) Hypertension: Blood pressure is elevated. Patient is on lisinopril 40 mg daily, will continue Unclear if patient is entirely compliant with this. We will continue to monitor. Consider adding second agent if blood pressure mimi elevated (5) CAD (coronary artery disease): Low-dose aspirin as noted above. 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 Patient is not able to provide much history, history as per son. I Son states patient has had been having ongoing issues with dementia which seems to be worsening. He states on 2 different occasions, the patient is wandered out of the house in the middle of the night and was found lying facedown in the neighborhood. He feels the patient is very unsteady on his feet with any ambulation. He also describes some difficulty with swallowing. On review of outpatient records, some of the patient's medications been discontinued including Aricept as the patient was declining despite treatment. Today, as the son feels the patient is no longer safe without 24-hour supervision which she is unable to provide and would like the patient to be admitted to our facility for eventual placement to dementia unit. The patient herself is awake and alert. He is very confused and cannot answer most questions. He does have a good sense of humor and does not appear to be in any significant distress. Allergies Allergy/AdvReac Type Severity Reaction Status Date / Time Penicillins Allergy Mild Rash Verified 11/02/20 11:38 metformin Allergy Unknown Diarrhea Verified 11/02/20 11:38 metoprolol Allergy Unknown Confusion Verified 11/02/20 11:38 zolpidem [From Ambien] Allergy Unknown Verified 11/02/20 11:38 Home Medications Medication Instructions Recorded Confirmed Type acetaminophen 500 mg tablet 1,000 mg PO TID PRN #90 tab 12/20/18 11/02/20 History blood sugar diagnostic #10 ea 12/20/18 04/24/20 History cholecalciferol (vitamin D3) 25 1,000 units PO QAM cap 12/20/18 11/02/20 History mcg (1,000 unit) capsule ferrous sulfate 325 mg (65 mg 325 mg PO QAM tab 12/20/18 11/02/20 History iron) tablet lancets #50 ea 12/20/18 07/25/20 History lisinopril 40 mg tablet 40 mg PO QAM #90 tab 12/18/19 11/02/20 Rx sitagliptin 100 mg tablet 100 mg PO QAM #30 tab 03/21/20 11/02/20 Rx apixaban 2.5 mg tablet 2.5 mg PO BID #60 tab 04/22/20 11/02/20 Rx digoxin 125 mcg (0.125 mg) tablet 125 mcg PO QAM #90 tab 04/24/20 11/02/20 Rx atorvastatin 40 mg PO QAM 11/02/20 11/02/20 History glipizide 20 mg PO QAM 11/02/20 11/02/20 History sertraline 100 mg PO QAM 11/02/20 11/02/20 History Past Med/Surg History Medical History (Updated 11/02/20 @ 13:05 by Jori Clements DO) Anemia CAD (coronary artery disease) Cerebral atherosclerosis Chronic anticoagulation Dyslipidemia Gastroesophageal reflux disease GI (gastrointestinal bleed) Hypercalcemia Hyperparathyroidism Hypertension Insomnia Lower back pain Mild cognitive impairment Osteoarthritis of sternoclavicular joint Permanent atrial fibrillation 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 Vitamin D deficiency Surgical History 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) S/P aortic valve replacement S/P CABG (coronary artery bypass graft) S/P cataract surgery S/P tonsillectomy S/P total knee arthroplasty Family History Mother Coronary heart disease Myocardial infarction Father Coronary heart disease Myocardial infarction Brother Dementia Denies family history of Ovarian cancer Prostate cancer Breast cancer Colorectal cancer Social History Smoking Status: Former smoker Age Quit Using Tobacco: 42; Second Hand Exposure: No; Hx Alcohol Use: Yes Hx Substance Use: No Preferred Language: Croatian Communication Ability: Effective Visual Impairment: No Limitations Hearing Ability: Normal Revenue Agent Required: No Beliefs That Will Affect Care: None marital status: / Current Living Situation: Alone current occupational status: retired Feels Safe at Home: Yes Childhood Exposure to Second-Hand Smoke: Yes during the past year weight has: remained stable Dental Care, Regularly: No Physical Activity Frequency: Daily Seatbelt Use: always Sunscreen Use: No Review of Systems Review of Systems: Unobtainable due to cognitive status Physical Exam Constitutional: cooperative; no acute distress Neck: trachea midline, no thyromegaly Respiratory: normal respiratory effort Auscultation: lungs clear to auscultation bilaterally; no crackles, no rales, no rhonchi and no wheezes Cardiovascular: Rate/Rhythm: regular rate and regular rhythm Heart Sounds: normal S1 and normal S2; no murmur Gastrointestinal (Abdomen): Inspection/Auscultation: abdomen normal to inspection Percussion/Palpation: abdomen soft; abdomen nontender, no guarding, abdomen not rigid and no hepatosplenomegaly Skin: no rashes, warm and dry Results & Data Results & [facility] ([facility]) Vital Signs (Past 12 Hours) Vital Signs Temp Pulse Resp BP Pulse Ox 11/02/20 12:33 82 20 161/72 H 97 11/02/20 12:32 79 23 97 11/02/20 12:01 86 21 95 11/02/20 12:00 82 22 127/66 95 11/02/20 11:36 97 11/02/20 11:32 84 20 97 11/02/20 11:31 86 17 157/72 H 97 11/02/20 11:30 88 21 99 11/02/20 11:10 82 25 H 94 11/02/20 11:06 78 21 149/68 H 94 11/02/20 10:13 36.9 C 93 H 18 139/[address] head/brain wo con CLINICAL HISTORY: fall, confusion COMPARISON STUDY: 04/12/2019 TECHNIQUE: Axial CT of the brain is performed from the vertex to the skull base. IV contrast was not administered for this examination. A dose lowering technique was utilized adhering to the principles of ALARA. CT DOSE: 537.48 mGy.cm FINDINGS: No intra or extra-axial mass lesions are visualized. There is no CT evidence of acute cortical infarction. There is no evidence of midline shift. There is no acute hemorrhage. No calvarial fractures are visualized. There are patchy white matter hypodensities likely on a small vessel basis. There are basal ganglia lacunar infarcts. There is equivocal lacunar infarct within the right thalamus versus partial volume averaging with the lateral ventricle. 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 There is no evidence of pathologic ventricular dilatation. There is no evidence of acute sinusitis IMPRESSION: 1. No acute intracranial findings. 2. Multifocal lacunar infarcts 3. If there is pedicle concern over the presence of an acute infarction, an MRI could be obtained in follow-up. 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
--- NOTE | 2020-11-02 15:09 | Electrocardiogram Report ---
Test Reason : Blood Pressure : / mmHG Vent. Rate : 085 BPM Atrial Rate : 085 BPM P-R Int : 166 ms QRS Dur : 106 ms QT Int : 342 ms P-R-T Axes : 086 052 229 degrees QTc Int : 406 ms Sinus rhythm with occasional Premature ventricular complexes Incomplete left bundle block Abnormal ECG When compared with ECG of 12-APR-2019 13:57, No significant change was found Confirmed by Jean Velasco ([id number]) on 11/02/2020 3:09:01 PM Referred By: REFERRED SELF Confirmed By:Jean Velasco
[2020-11-02] MEDS ORDERED: GLUCOSE 40% GEL 15 GM TUBE PO PRN (16:12)
[2020-11-02] MEDS ORDERED: GLUCAGON FOR INJ 1 MG VIAL SQ PRN (16:12)
[2020-11-02] MEDS ORDERED: CARBOHYDRATES FOR HYPOGLYCEMIA PO PRN (16:12)
[2020-11-02] MEDS ORDERED: ONDANSETRON INJ 2 MG/ML 2 ML VIAL IV PRN (16:12)
[2020-11-02] MEDS ORDERED: GLUCOSE 10 TABS/TUBE PO PRN (16:12)
[2020-11-02] MEDS ORDERED: DEXTROSE 50% 50 ML SYRINGE IV PRN (16:12)
[2020-11-02] MEDS ORDERED: ACETAMINOPHEN 500 MG TAB PO PRN (16:12)
[2020-11-02] MEDS ORDERED: PHARMACY GLYCEMIC MGMT CONSULT PRN (16:26)
[2020-11-02] MEDS ORDERED: LORazepam 0.5 MG TAB PO STA (16:46)
[2020-11-02] MEDS ORDERED: LORazepam 0.5 MG TAB ONE (16:50)
--- NOTE | 2020-11-02 17:31 | Magnetic Resonance Report ---
MRI OF THE BRAIN WITHOUT CONTRAST CLINICAL HISTORY: confusion COMPARISON STUDY: MRI the brain dated 04/17/2012, CT scan dated 11/02/2020 FINDINGS: The study consists of axial diffusion images and a coronal FLAIR sequence. The patient was unable to tolerate additional imaging. No intra or extra-axial mass lesions are visualized Axial diffusion-weighted images reveal no evidence of acute or subacute infarction. There is no evidence of ventricular dilatation. Coronal FLAIR images reveal scattered foci of increased T2 signal within the white matter, likely on a small vessel basis. There are no abnormal flow voids. IMPRESSION: 1. Technically limited study. The patient was unable to tolerate all the prescribed possible sequence s 2. No acute intracranial findings 3. No evidence of intracranial mass 4. No evidence of acute subacute infarction 5. No evidence of hydrocephalus ACT 112: Negative or not required by law. Electronically signed by: Cayetano Gonzalez M.D. 11/02/2020 5:30 PM
[2020-11-02] MEDS: INSULIN ASPART 100 UNITS/ML 3 ML PEN SC SCH ×3 (17:44→23:22)
[2020-11-02] MEDS ORDERED: HALOPERIDOL LACTATE 5 MG/ML 1 ML VIAL IV STA (18:47)
[2020-11-02] MEDS: APIXABAN 2.5 MG TAB PO SCH (20:44)
[2020-11-02] MEDS ORDERED: INSULIN GLARGINE SOLOSTAR 100 UNITS/ML 3 ML PEN SC ONE (21:00)
--- NOTE | 2020-11-02 21:32 | Communication Note ---
Date of Service: November 02, 2020 Called by bedside nursing staff for concerns of intermittent PVCs, and 2 pauses lasting between 3.4 and 4.3 seconds. Patient's blood pressure and mentation were okay during and throughout this times. On review of telemetry the concern for pauses occurred immediately following PVC firing which seems to have varied portion of the P wave. Patient was placed on pacer pads for prolonged monitoring given these pauses. Cardiology consulted for further evaluation and determination whether or not these pauses represent concern for tachybrady syndrome. Resident Activity Tracking Resident Involvement: Resident Care Provided Care Provided: Adult [facility] Medicine
[2020-11-03] MEDS: INSULIN ASPART 100 UNITS/ML 3 ML PEN SC SCH ×6 (04:12→20:36)
[2020-11-03 06:20] LABS: Basophils # (auto) 0.02 K/uL (0-0.2); Basophils % (auto) 0.2 %; Eosinophils # (auto) 0.15 K/uL (0-0.5); Eosinophils % (auto) 1.6 %; Hematocrit (blood only) 36.8 % (42-52); Immature Granulocytes # (auto) 0.04 K/uL (0.00-0.02); Immature Granulocytes % (auto) 0.4 %; Lymphocytes # (auto) 1.38 K/uL (1.2-3.4); Lymphocytes % (auto) 14.6 %; Mean Corpuscular Hemoglobin 30.6 pg (25-34); Mean Corpuscular Hgb Conc 35.3 g/dL (32-36); Mean Corpuscular Volume 86.6 fL (80-100); Monocytes # (auto) 0.49 K/uL (0.11-0.59); Monocytes % (auto) 5.2 %; Neutrophils # (auto) 7.38 K/uL (1.4-6.5); Platelet Count 176 K/uL (130-400); RDW Coefficient of Variation 12.1 % (11.5-14.5); RDW Standard Deviation 38.2 fL (36.4-46.3); Red Blood Count 4.25 M/uL (4.7-6.1); White Blood Count 9.46 K/uL (4.8-10.8)
[2020-11-03 06:48] LABS: BUN Creatinine Ratio 28.2 (10-20); Calcium 9.4 mg/dl (8.5-10.1); Creatinine Clr Calc Pharmacy 42.1 ml/min; Est GFR (African American) 63.6 ml/min; Est GFR (Non-African American) 54.9 ml/min; Magnesium 1.8 mg/dl (1.8-2.4); Potassium 4.7 mmol/L (3.5-5.1)
[2020-11-03] MEDS ORDERED: INSULIN GLARGINE SOLOSTAR 100 UNITS/ML 3 ML PEN SC ONE (07:30)
[2020-11-03] MEDS: FERROUS SULFATE 325 MG TAB PO SCH (08:21)
[2020-11-03] MEDS: CHOLECALCIFEROL 1,000 UNITS 25 MCG TAB PO SCH (08:21)
[2020-11-03] MEDS: APIXABAN 2.5 MG TAB PO SCH ×2 (08:21→20:37)
[2020-11-03] MEDS: lisinopril 40 MG TAB PO SCH (08:21)
[2020-11-03] MEDS: ASPIRIN 81 MG ECTAB PO SCH (08:21)
[2020-11-03] MEDS: ATORVASTATIN 40 MG TAB PO SCH (08:21)
[2020-11-03] MEDS: SERTRALINE HCL 100 MG TABLET PO SCH (08:22)
[2020-11-03] MEDS ORDERED: NON-FORMULARY MEDICATION (Glipizide 10 mg tablet extended release 24hr) PO SCH (09:00)
[2020-11-03] MEDS ORDERED: SITagliptin PHOSPHATE 100 MG TAB PO SCH (09:00)
--- NOTE | 2020-11-03 09:35 | Pharmacy Report ---
Pharmacy Glycemic Short Note 2 - Date of Service November 03, 2020 - Glycemic Short BSG Results (Last 24 hours): 11/02/20 11/02/20 11/02/20 11:03 12:25 14:47 Glucose 406 H* POC Glucose 351 H* 295 H 11/02/20 11/02/20 11/02/20 16:05 20:02 23:18 Glucose POC Glucose 274 H 208 H 179 H 11/03/20 11/03/20 11/03/20 03:55 05:57 07:02 Glucose 262 H POC Glucose 271 H 250 H OUTPATIENT ANTIDIABETIC REGIMEN: * Januvia 100mg PO QAM * Glipizide ER 20mg PO Daily * A1c = 10.6% on 04/24/20 * A1c pending for 11/03/20 ASSESSMENT: * 80yo T2DM male with unknown degree of outpatient control - A1c pending this morning * Pt is maintained on oral antidiabetic agents as an outpatient * Oral agents are not recommended for inpatient use d/t drug interactions, changing PO intake, and difficulty titrating for acute hyper/hypoglycemia. ADA recommends re-initiating outpatient oral agents 1-2 days prior to discharge if/when appropriate if they were held on admission. * Will hold oral agents for admission and utilize SQ basal bolus insulin regimen which is the recommended regimen for inpatient glycemic control. * Will initiate weight based insulin dosing for insulin caitlin patient * Pt is NPO- will start conservatively and titrate based on BSG trends. PLAN FOR INPATIENT GLYCEMIC CONTROL: * Hold outpatient oral diabetes medications * Basal insulin * Lantus 10-15 units SQ BID ; dose based on BSG. See EMR for details * Bolus insulin * NovoLog per scale ACHS or Q6hrs while NPO * Goal Range: Low 120 mg/dL - High 150 mg/dL * Correction Factor: 35 mg/dL/unit * Nutritional / Prandial insulin per carb ratio of 1 unit per 11 grams CHO consumed PLAN FOR DISCHARGE: * TBD once A1c results
--- NOTE | 2020-11-03 10:00 | Electrocardiogram Report ---
Test Reason : Blood Pressure : / mmHG Vent. Rate : 080 BPM Atrial Rate : 080 BPM P-R Int : 180 ms QRS Dur : 104 ms QT Int : 362 ms P-R-T Axes : 078 070 240 degrees QTc Int : 417 ms Sinus rhythm with occasional Premature ventricular complexes Left ventricular hypertrophy with QRS widening and repolarization abnormality Abnormal ECG When compared with ECG of 02-NOV-2020 10:55, No significant change was found Confirmed by Charbel Wesley ([id number]) on 11/03/2020 9:59:58 AM Referred By: REFERRED SELF Confirmed By:Charbel Wesley
--- NOTE | 2020-11-03 11:16 | Cardiology Consultation ---
Date of Consultation Patient was admitted with worsening symptoms of his multi-infarct dementia. The beginning of our conversation he seemed relatively lucid. Then when I asked him about living with his son he told me that he was living with his parents as well as his son. He denied any chest pain chest pressure chest heaviness. He denies any shortness of breath. I inquired as to whether he felt palpitations or had any lightheadedness or dizziness or presyncope and he denied all of these. The rest of a complete review of systems otherwise unobtainable. November 03, 2020 History of Present Illness Attending Physician: Diego Ngo MD Allergies Allergy/AdvReac Type Severity Reaction Status Date / Time Penicillins Allergy Mild Rash Verified 11/02/20 11:38 metformin Allergy Unknown Diarrhea Verified 11/02/20 11:38 metoprolol Allergy Unknown Confusion Verified 11/02/20 11:38 zolpidem [From Ambien] Allergy Unknown Verified 11/02/20 11:38 Home Medications Medication Instructions Recorded Confirmed Type acetaminophen 500 mg tablet 1,000 mg PO TID PRN #90 tab 12/20/18 11/02/20 History blood sugar diagnostic #10 ea 12/20/18 04/24/20 History cholecalciferol (vitamin D3) 25 1,000 units PO QAM cap 12/20/18 11/02/20 History mcg (1,000 unit) capsule ferrous sulfate 325 mg (65 mg 325 mg PO QAM tab 12/20/18 11/02/20 History iron) tablet lancets #50 ea 12/20/18 07/25/20 History lisinopril 40 mg tablet 40 mg PO QAM #90 tab 12/18/19 11/02/20 Rx sitagliptin 100 mg tablet 100 mg PO QAM #30 tab 03/21/20 11/02/20 Rx apixaban 2.5 mg tablet 2.5 mg PO BID #60 tab 04/22/20 11/02/20 Rx digoxin 125 mcg (0.125 mg) tablet 125 mcg PO QAM #90 tab 04/24/20 11/02/20 Rx atorvastatin 40 mg PO QAM 11/02/20 11/02/20 History glipizide 20 mg PO QAM 11/02/20 11/02/20 History sertraline 100 mg PO QAM 11/02/20 11/02/20 History Patient History Medical History Anemia CAD (coronary artery disease) Cerebral atherosclerosis Chronic anticoagulation Dyslipidemia Gastroesophageal reflux disease GI (gastrointestinal bleed) Hypercalcemia Hyperparathyroidism Hypertension Insomnia Lower back pain Mild cognitive impairment Osteoarthritis of sternoclavicular joint Permanent atrial fibrillation 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 Vitamin D deficiency Surgical History 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) S/P aortic valve replacement S/P CABG (coronary artery bypass graft) S/P cataract surgery S/P tonsillectomy S/P total knee arthroplasty Family History Mother Coronary heart disease Myocardial infarction Father Coronary heart disease Myocardial infarction Brother Dementia Denies family history of Ovarian cancer Prostate cancer Breast cancer Colorectal cancer Social History Smoking Status: Never smoker Age Quit Using Tobacco: 42; Second Hand Exposure: No; Hx Alcohol Use: Yes Hx Substance Use: No Preferred Language: Mongolian Communication Ability: Effective Visual Impairment: No Limitations Hearing Ability: Normal Cemetery Counselor Required: No Beliefs That Will Affect Care: None marital status: / Current Living Situation: Alone Current Living Situation Comment: Home alone current occupational status: retired Feels Safe at Home: Yes Safety Concerns: Feels Safe At This Time Childhood Exposure to Second-Hand Smoke: Yes during the past year weight has: remained stable Dental Care, Regularly: No Physical Activity Frequency: Daily Seatbelt Use: always Sunscreen Use: No Assistive Devices: Glasses Results & Data ([facility]) Vital Signs (Past 12 Hours) Vital Signs Temp Pulse Pulse Resp BP Pulse Ox 11/03/20 08:00 111 H 11/03/20 07:39 36.9 C 98 H 10 L 154/87 H 95 11/03/20 03:57 36.9 C 104 H 20 161/79 H 93 he is pleasantly demented. HEENT: 2+ carotid upstrokes no evidence of carotid bruits Lungs: Clear to auscultation bilaterally no rales rhonchi wheezing Heart regular rate and rhythm with frequent ectopy there is a soft systolic ejection murmur at the right sternal border Abdomen: Soft nontender distended positive bowel sounds Extremities: No clubbing cyanosis or edema IMPRESSIONS: 1.frequent PVCs, ventricular couplets, and short runs of nonsustained VT (all asymptomatic) 2. Multi-infarct dementia 3. Paroxysmal atrial fibrillation 4. coronary artery disease (CABG , January 2012) 5. valvular heart disease (bioprosthetic AVR, January 2012). 6. hypertension 7. hypercholesterolemia He has a history of chronic kidney disease as well with a creatinine as high as 1.5-1.6. Given this digoxin is probably not the best drug for his atrial arrhythmias. He seems to have an blood pressure room that low-dose beta- blockers could be used which would be helpful in suppressing his ventricular ectopy. I do not see an assessment of his ejection fraction. When Dr. Velasco returns tomorrow hopefully there is an echo in the [facility] cardiology office if not depending on how aggressive wall and wants to be a an echo could be ordered. Given his dementia though he is not a candidate for defibrillator. I would keep his potassium greater than 4 and his magnesium greater than 2. In reviewing his lifter he is in sinus rhythm and at times sinus bradycardia with frequent PVCs. He has ventricular couplets as well there are some pauses post PVC beats where he then converts back to sinus bradycardia. It appears those pauses are asymptomatic. I think stopping his digoxin is appropriate and then once the dig is out of his system beta-blockers can be initiated slowly and then uptitrated. Dr. Velasco will return tomorrow to continue his care.
[2020-11-03] MEDS ORDERED: DIGOXIN 0.125 MG TAB PO SCH (16:00)
[2020-11-03] MEDS ORDERED: LORazepam 1 MG/2 ML VIAL IV PRN (17:31)
[2020-11-03] MEDS: OLANZapine 10 MG/2.1 ML SDV IM PRN (17:42)
--- NOTE | 2020-11-03 20:16 | Hospitalist Progress Note ---
Date of Service November 03, 2020 Assessment & Plan (1) Multi-infarct dementia: Patient CT scan and history consistent with worsening multi-infarct dementia. - MRI brain was very limited, but shows small vessel disease. - Continue aspirin. - Patient will need placement. He has significant memory deficits, and I do not think he is capable of making his own medical decisions. He cannot tell me about his medical issues, what we could do to treat them, or alternatives to our offered treatment. He cannot recall his home or safety plans. - PT/OT evaluation, CM (2) Dysphagia: Son mentioned that the patient is having some swallowing difficulty. Patient denied this. - Seen on 11/03. SELVAGE MACHINE OPERATOR recommended: * Easy to chew diet * Fully alert and upright for eating * Usual aspiration precautions (3) Permanent atrial fibrillation: This appears to be paroxysmal atrial fibrillation the patient is currently in normal sinus rhythm. - Continue Eliquis 2.5 mg PO BID (4) Hypertension: BP today was 125/75. - Continue lisinopril 40 mg PO daily (5) CAD (coronary artery disease): No complaint of chest pain. - Low-dose aspirin as noted above. 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 A1c pending. - Diabetic diet - Sliding scale insulin (7) DVT prophylaxis: Eliquis for afib Admission and Anticipated Discharge Date Admission Date: November 02, 2020 Subjective Pleasant, but clearly confused today. Unable to really answer even fairly basic questions like how he got to the hospital or where he lives. Reports no fevers/chills, chest pain, shortness of breath, abdominal pain, nausea, or vomiting. Physical Exam Constitutional: WD/WN, vitals as above Eyes: EOM intact bilaterally; no conjunctival abnormality ENMT: external ear and nose normal, oropharynx normal Neck: trachea midline, no thyromegaly normal visual inspection Respiratory: normal respiratory effort, lungs clear to auscultation no respiratory distress Cardiovascular: RRR, no murmur, no edema Gastrointestinal (Abdomen): Inspection/Auscultation: abdomen normal to inspection; abdomen not distended Musculoskeletal: no cyanosis or clubbing, extremities motor strength 5/5 Skin: no rashes, warm and dry Neurologic: moves all extremities and awake Psychiatric: Orientation: alert and oriented to person; + not oriented to place, + not oriented to time and + uncooperative Results & Data Results & Data ([facility]) Vital Signs (Past 12 Hours) Vital Signs Temp Pulse Resp BP BP Pulse Ox 11/03/20 19:43 37.1 C 99 H 20 124/74 94 11/03/20 15:01 36.4 C L 108 H 18 161/87 H 92 11/03/20 11:12 37.0 C 98 H 13 119/75 93 PG Care Time/CCT Total # of Minutes Spent Total Time Spent with Patient: Total time spent is greater than 50% in coordination of care (as documented) at patient's floor/unit and/or counseling patient: Coding Level of Care Code 62505 Subseq Hosp Care Lvl 3 Diagnoses Multi-infarct dementia F01.51 Dementia behavioral disturbance: with behavioral disturbance Dysphagia R13.10 Permanent atrial fibrillation I48.21 Hypertension I10 CAD (coronary artery disease) I25.10 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
[2020-11-03] MEDS: LORazepam 1 MG TAB SL PRN (20:37)
[2020-11-03] MEDS ORDERED: INSULIN GLARGINE SOLOSTAR 100 UNITS/ML 3 ML PEN SC SCH (21:00)
[2020-11-04 07:14] LABS: Hematocrit (blood only) 38.9 % (42-52); Hemoglobin 13.2 g/dL (14.0-18.0); Mean Corpuscular Hemoglobin 30.2 pg (25-34); Mean Corpuscular Hgb Conc 33.9 g/dL (32-36); Mean Platelet Volume 8.9 fL (7.4-10.4); Platelet Count 210 K/uL (130-400); RDW Coefficient of Variation 12.2 % (11.5-14.5); RDW Standard Deviation 39.6 fL (36.4-46.3); Red Blood Count 4.37 M/uL (4.7-6.1); White Blood Count 9.49 K/uL (4.8-10.8)
[2020-11-04 07:46] LABS: Estimated Average Glucose 301 mg/dl; Hemoglobin A1C 12.1 % (4.5-5.6)
[2020-11-04] MEDS: ASPIRIN 81 MG ECTAB PO SCH (08:33)
[2020-11-04] MEDS: SERTRALINE HCL 100 MG TABLET PO SCH (08:33)
[2020-11-04] MEDS: lisinopril 40 MG TAB PO SCH (08:33)
[2020-11-04] MEDS: FERROUS SULFATE 325 MG TAB PO SCH (08:33)
[2020-11-04] MEDS: INSULIN ASPART 100 UNITS/ML 3 ML PEN SC SCH ×4 (08:33→19:50)
[2020-11-04] MEDS: CHOLECALCIFEROL 1,000 UNITS 25 MCG TAB PO SCH (08:33)
[2020-11-04] MEDS: ATORVASTATIN 40 MG TAB PO SCH (08:33)
[2020-11-04] MEDS ORDERED: INSULIN GLARGINE SOLOSTAR 100 UNITS/ML 3 ML PEN SC SCH ×2 (09:00→21:00)
--- NOTE | 2020-11-04 09:00 | Pharmacy Report ---
Pharmacy Glycemic Short Note 2 - Date of Service November 04, 2020 - Glycemic Short BSG Results (Last 24 hours): 11/03/20 11/03/20 11/03/20 10:55 16:04 20:18 POC Glucose 226 H 220 H 203 H 11/04/20 07:21 POC Glucose 183 H OUTPATIENT ANTIDIABETIC REGIMEN: * Januvia 100mg PO QAM * Glipizide ER 20mg PO Daily * A1c = 12.1% (11/03/20) ASSESSMENT: 11/04: * BSGs elevated yesterday, ranging 203-250 mg/dL * Will tighten Novolog today with breakfast * Received 53 units of insulin (30 units of basal and 23 units of prandial/correctional bolus) * Fasting BSG improved from yesterday (183 mg/dL this morning) * Continue current basal * Renal function improved yesterday, SCr 1.64 -> 1.22 mg/dL 11/03: * 80yo T2DM male with unknown degree of outpatient control - A1c pending this morning * Pt is maintained on oral antidiabetic agents as an outpatient * Oral agents are not recommended for inpatient use d/t drug interactions, changing PO intake, and difficulty titrating for acute hyper/hypoglycemia. ADA recommends re-initiating outpatient oral agents 1-2 days prior to discharge if/when appropriate if they were held on admission. * Will hold oral agents for admission and utilize SQ basal bolus insulin regimen which is the recommended regimen for inpatient glycemic control. * Will initiate weight based insulin dosing for insulin caitlin patient * Pt is NPO- will start conservatively and titrate based on BSG trends. PLAN FOR INPATIENT GLYCEMIC CONTROL: * Hold outpatient oral diabetes medications * Basal insulin * Lantus 15 units SC x 1 this morning * Lantus scale to provide 0-15 units BID starting this evening (see EHR for details) * Bolus insulin * NovoLog per scale ACHS or Q6hrs while NPO * Goal Range: Low 110 mg/dL - High 140 mg/dL * Correction Factor: 30 mg/dL/unit * Nutritional / Prandial insulin per carb ratio of 1 unit per 10 grams CHO consumed PLAN FOR DISCHARGE: * Patient has significant multi-infarct dementia, presenting with worsening confusion * Discharge recs will be largely dependent on goals of care and discharge disposition * A less stringent HbA1c goal with a focus on limiting hypoglycemia is likely the most appropriate treatment plan * eGFR is currently above 50 mL/min, so current outpatient oral agents are okay to continue at this time * If concerned for labile renal function, would consider discontinuing glipizide ER, as this may medication may increase likelihood of hypoglycemia in patients with renal impairment * Consider addition of once daily basal insulin (dose to be determined)
[2020-11-04] MEDS: APIXABAN 2.5 MG TAB PO SCH ×2 (10:11→19:18)
[2020-11-04 11:19] LABS: Albumin Level 3.4 gm/dl (3.4-5.0); BUN Creatinine Ratio 22.7 (10-20); Calcium 9.6 mg/dl (8.5-10.1); Creatinine Clr Calc Pharmacy 35.7 ml/min; Est GFR (Non-African American) 44.9 ml/min; Magnesium 1.9 mg/dl (1.8-2.4); Potassium 4.1 mmol/L (3.5-5.1)
[2020-11-04 11:22] LABS: Albumin Globulin Ratio 0.8 (0.9-2); Bilirubin,Total 0.6 mg/dl (0.2-1); Globulin 4.1 gm/dl (2.5-4.0); Total Protein 7.5 gm/dl (6.4-8.2)
--- NOTE | 2020-11-04 17:13 | Hospitalist Progress Note ---
Date of Service November 04, 2020 Assessment & Plan (1) Multi-infarct dementia: Patient CT scan and history consistent with worsening multi-infarct dementia. - MRI brain was very limited, but shows small vessel disease. - Continue aspirin. - Patient will need placement. He has significant memory deficits, and I do not think he is capable of making his own medical decisions. He cannot tell me about his medical issues, what we could do to treat them, or alternatives to our offered treatment. He cannot recall his home or safety plans. - PT/OT evaluation, CM working toward [facility]. (2) Dysphagia: Son mentioned that the patient is having some swallowing difficulty. Patient denied this. - Seen on 11/03. [employer]ORER [employer]AN [employer]SE recommended: * Easy to chew diet * Fully alert and upright for eating * Usual aspiration precautions (3) Permanent atrial fibrillation: This appears to be paroxysmal atrial fibrillation the patient is currently in normal sinus rhythm. - Continue Eliquis 2.5 mg PO BID (4) Hypertension: BP today was 105/75. - Continue lisinopril 40 mg PO daily (5) CAD (coronary artery disease): No complaint of chest pain. - Low-dose aspirin as noted above. 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 A1c pending. - Diabetic diet - Sliding scale insulin (7) DVT prophylaxis: Eliquis for afib Admission and Anticipated Discharge Date Admission Date: November 02, 2020 Subjective Given both Zyprexa and Ativan for agitation and aggression toward the nursing staff. When I saw him, he would open his eyes, but not really say much. Review of Systems Review of Systems: Unobtainable due to cognitive status Physical Exam Constitutional: WD/WN, vitals as above Eyes: EOM intact bilaterally; no conjunctival abnormality ENMT: external ear and nose normal, oropharynx normal Neck: trachea midline, no thyromegaly normal visual inspection Respiratory: normal respiratory effort, lungs clear to auscultation no respiratory distress Cardiovascular: RRR, no murmur, no edema Gastrointestinal (Abdomen): Inspection/Auscultation: abdomen normal to inspection; abdomen not distended Musculoskeletal: no cyanosis or clubbing, extremities motor strength 5/5 Skin: no rashes, warm and dry Neurologic: moves all extremities; + not awake Psychiatric: Orientation: + not alert, + not oriented to place, + not oriented to time and + uncooperative Results & Data Results & Data ([facility]) Vital Signs (Past 12 Hours) Vital Signs Temp Pulse Pulse Resp BP BP Pulse Ox 11/04/20 16:55 86 11/04/20 16:28 36.5 C 99 H 18 103/62 96 11/04/20 11:09 36.8 C 95 H 20 123/80 91 11/04/20 08:00 101 H 11/04/20 07:45 37.0 C 104 H 17 130/72 99 PG Care Time/CCT Total # of Minutes Spent Total Time Spent with Patient: Total time spent is greater than 50% in coordination of care (as documented) at patient's floor/unit and/or counseling patient: Coding Level of Care Code 19258 Subseq Hosp Care Lvl 2 Diagnoses Multi-infarct dementia F01.51 Dementia behavioral disturbance: with behavioral disturbance Dysphagia R13.10 Permanent atrial fibrillation I48.21 Hypertension I10 CAD (coronary artery disease) I25.10 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
[2020-11-04] MEDS: LORazepam 1 MG TAB SL PRN (21:11)
[2020-11-05] MEDS: OLANZapine 10 MG/2.1 ML SDV IM PRN ×2 (02:04→21:03)
[2020-11-05] MEDS: CHOLECALCIFEROL 1,000 UNITS 25 MCG TAB PO SCH (07:57)
[2020-11-05] MEDS: APIXABAN 2.5 MG TAB PO SCH ×2 (07:57→21:02)
[2020-11-05] MEDS: lisinopril 40 MG TAB PO SCH (07:58)
[2020-11-05] MEDS: ATORVASTATIN 40 MG TAB PO SCH (07:58)
[2020-11-05] MEDS: SERTRALINE HCL 100 MG TABLET PO SCH (07:58)
[2020-11-05] MEDS: FERROUS SULFATE 325 MG TAB PO SCH (07:58)
[2020-11-05] MEDS: ASPIRIN 81 MG ECTAB PO SCH (07:58)
[2020-11-05] MEDS: INSULIN ASPART 100 UNITS/ML 3 ML PEN SC SCH ×4 (08:46→20:22)
[2020-11-05] MEDS ORDERED: INSULIN GLARGINE SOLOSTAR 100 UNITS/ML 3 ML PEN SC SCH (09:00)
--- NOTE | 2020-11-05 13:16 | Pharmacy Report ---
Pharmacy Glycemic Short Note 2 - Date of Service November 05, 2020 - Glycemic Short BSG Results (Last 24 hours): 11/04/20 11/04/20 11/05/20 16:30 19:47 07:17 POC Glucose 211 H 124 H 150 H 11/05/20 11:08 POC Glucose 162 H OUTPATIENT ANTIDIABETIC REGIMEN: * Januvia 100mg PO QAM * Glipizide ER 20mg PO Daily * A1c = 12.1% (11/03/20) ASSESSMENT: 11/05: * BSGs improved yesterday, 183, 146, 211, and 124 mg/dL * Received 35 units of insulin (20 units of basal and 15 units of prandial/correctional bolus) * Fasting BSG improved from yesterday (150 mg/dL this morning) * Patient with no documented PO intake today - will utilize scaled HS Lantus to account for this 11/03: * 80yo T2DM male with unknown degree of outpatient control - A1c pending this morning * Pt is maintained on oral antidiabetic agents as an outpatient * Oral agents are not recommended for inpatient use d/t drug interactions, changing PO intake, and difficulty titrating for acute hyper/hypoglycemia. ADA recommends re-initiating outpatient oral agents 1-2 days prior to discharge if/when appropriate if they were held on admission. * Will hold oral agents for admission and utilize SQ basal bolus insulin regimen which is the recommended regimen for inpatient glycemic control. * Will initiate weight based insulin dosing for insulin caitlin patient * Pt is NPO- will start conservatively and titrate based on BSG trends. PLAN FOR INPATIENT GLYCEMIC CONTROL: * Hold outpatient oral diabetes medications * Basal insulin * Lantus 12 units SC x 1 this morning * Lantus 0-12 units SC BID thereafter (see EHR for details) * Bolus insulin * NovoLog per scale ACHS or Q6hrs while NPO * Goal Range: Low 110 mg/dL - High 140 mg/dL * Correction Factor: 30 mg/dL/unit * Nutritional / Prandial insulin per carb ratio of 1 unit per 10 grams CHO consumed PLAN FOR DISCHARGE: * Patient has significant multi-infarct dementia, presenting with worsening confusion * Discharge recs will be largely dependent on goals of care and discharge disposition * A less stringent HbA1c goal with a focus on limiting hypoglycemia is likely the most appropriate treatment plan * eGFR is currently above 50 mL/min, so current outpatient oral agents are okay to continue at this time * If concerned for labile renal function, would consider discontinuing glipizide ER, as this may medication may increase likelihood of hypoglycemia in patients with renal impairment * Consider addition of once daily basal insulin, dose dependent on PO intake at discharge * At this point Lantus 20 units SC daily is reasonable (would recommend discontinuing glipizide if Lantus is initiated in order to limit incidence of hypoglycemia)
--- NOTE | 2020-11-05 14:13 | Hospitalist Progress Note ---
Date of Service November 05, 2020 Assessment & Plan (1) Multi-infarct dementia: Patient CT scan and history consistent with worsening multi-infarct dementia. - MRI brain was very limited, but shows small vessel disease. - Continue aspirin. - Patient will need placement. He has significant memory deficits, and I do not think he is capable of making his own medical decisions. He cannot tell me about his medical issues, what we could do to treat them, or alternatives to our offered treatment. He cannot recall his home or safety plans. - PT/OT evaluation, CM working toward [facility]. Will be tough to place as he is quite aggressive. Will start Seroquel 25 mg PO BID to help. This has a known black box warning for use in the elderly with dementia; however, given his agitation and aggression, he is posing a risk to himself. (2) Dysphagia: Son mentioned that the patient is having some swallowing difficulty. Patient denied this. - Seen on 11/03. ABRASIVE BAND WINDER recommended: * Easy to chew diet * Fully alert and upright for eating * Usual aspiration precautions (3) Permanent atrial fibrillation: This appears to be paroxysmal atrial fibrillation the patient is currently in normal sinus rhythm. - Continue Eliquis 2.5 mg PO BID (4) Hypertension: BP today was 120/75. - Continue lisinopril 40 mg PO daily (5) CAD (coronary artery disease): No complaint of chest pain. - Low-dose aspirin as noted above. 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 A1c was 12.1%. - Diabetic diet - Sliding scale insulin -> Blood sugars generally at 125 - 200. (7) DVT prophylaxis: Eliquis for afib Admission and Anticipated Discharge Date Admission Date: November 02, 2020 Subjective Given both Zyprexa and Ativan for agitation and aggression toward the nursing staff overnight. He was waking up some for me, but could not answer questions. Review of Systems Review of Systems: Unobtainable due to cognitive status Physical Exam Constitutional: WD/WN, vitals as above + acute distress and + altered mental status Eyes: EOM intact bilaterally; no conjunctival abnormality ENMT: external ear and nose normal, oropharynx normal Neck: trachea midline, no thyromegaly normal visual inspection Respiratory: normal respiratory effort, lungs clear to auscultation no respiratory distress Cardiovascular: RRR, no murmur, no edema Gastrointestinal (Abdomen): Inspection/Auscultation: abdomen normal to inspection; abdomen not distended Musculoskeletal: no cyanosis or clubbing, extremities motor strength 5/5 Skin: no rashes, warm and dry Neurologic: moves all extremities and awake Psychiatric: Orientation: + not alert, + not oriented to place, + not oriented to time and + uncooperative Results & Data Results & Data ([facility]) Vital Signs (Past 12 Hours) Vital Signs Temp Pulse Resp BP Pulse Ox 11/05/20 11:05 36.8 C 99 H 20 119/74 92 11/05/20 07:18 36.8 C 114 H 19 92/59 L 90 PG Care Time/CCT Total # of Minutes Spent Total Time Spent with Patient: Total time spent is greater than 50% in coordination of care (as documented) at patient's floor/unit and/or counseling patient: Coding Level of Care Code 36755 Subseq Hosp Care Lvl 2 Diagnoses Multi-infarct dementia F01.51 Dementia behavioral disturbance: with behavioral disturbance Dysphagia R13.10 Permanent atrial fibrillation I48.21 Hypertension I10 CAD (coronary artery disease) I25.10 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
[2020-11-05] MEDS: INSULIN GLARGINE SOLOSTAR 100 UNITS/ML 3 ML PEN SC SCH (20:23)
[2020-11-05] MEDS: QUEtiapine FUMARATE 25 MG TABLET PO SCH (21:07)
[2020-11-06] MEDS: INSULIN ASPART 100 UNITS/ML 3 ML PEN SC SCH ×4 (10:21→20:36)
[2020-11-06] MEDS: QUEtiapine FUMARATE 25 MG TABLET PO SCH ×2 (10:25→20:28)
[2020-11-06] MEDS: APIXABAN 2.5 MG TAB PO SCH ×2 (10:25→20:28)
[2020-11-06] MEDS: SERTRALINE HCL 100 MG TABLET PO SCH (10:26)
[2020-11-06] MEDS: lisinopril 40 MG TAB PO SCH (10:27)
[2020-11-06] MEDS: ASPIRIN 81 MG ECTAB PO SCH (10:27)
[2020-11-06] MEDS: ATORVASTATIN 40 MG TAB PO SCH (10:28)
[2020-11-06] MEDS: FERROUS SULFATE 325 MG TAB PO SCH (10:29)
[2020-11-06] MEDS: INSULIN GLARGINE SOLOSTAR 100 UNITS/ML 3 ML PEN SC SCH ×2 (10:29→20:35)
[2020-11-06] MEDS: CHOLECALCIFEROL 1,000 UNITS 25 MCG TAB PO SCH (10:30)
[2020-11-06 12:30] LABS: Basophils # (auto) 0.02 K/uL (0-0.2); Basophils % (auto) 0.2 %; Eosinophils # (auto) 0.05 K/uL (0-0.5); Eosinophils % (auto) 0.4 %; Immature Granulocytes # (auto) 0.03 K/uL (0.00-0.02); Immature Granulocytes % (auto) 0.2 %; Lymphocytes % (auto) 8.3 %; Mean Corpuscular Hemoglobin 29.5 pg (25-34); Mean Corpuscular Hgb Conc 33.3 g/dL (32-36); Mean Corpuscular Volume 88.6 fL (80-100); Mean Platelet Volume 9.2 fL (7.4-10.4); Monocytes # (auto) 0.78 K/uL (0.11-0.59); Monocytes % (auto) 6.5 %; Neutrophils # (auto) 10.19 K/uL (1.4-6.5); Neutrophils % (auto) 84.4 %; Platelet Count 207 K/uL (130-400); RDW Coefficient of Variation 12.4 % (11.5-14.5); RDW Standard Deviation 40.1 fL (36.4-46.3); White Blood Count 12.07 K/uL (4.8-10.8)
[2020-11-06 13:17] LABS: BUN Creatinine Ratio 27.4 (10-20); Creatinine Clr Calc Pharmacy 20.6 ml/min; Est GFR (African American) 26.8 ml/min; Est GFR (Non-African American) 23.2 ml/min; Potassium 4.9 mmol/L (3.5-5.1)
--- NOTE | 2020-11-06 14:10 | Palliative Care Consultation ---
Date of Consultation November 06, 2020 Assessment & Plan (1) Dysphagia: In the setting of progressive multi infarct dementia. He does have variable mental status but per discussion with his son, difficulty swallowing has been an ongoing problem for him. Will monitor. We did discuss risks of as piration and considering goals for feeding and hydration but he wants to discuss this with siblings prior to making any decisions. (2) Palliative care encounter: Bernardo is currently a full code. Per his son, Truman aGry", he has never talked about what he would want for his care. Josue feels that he would not want him to linger but wants to discuss this with his siblings before making any decisions. Currently both sons, Scar and Josue are on vacation and want to wait until they return to meet with family and discuss goals of care. We discussed role of palliative care and I updated him on how Bernardo is doing today. (3) Multi-infarct dementia: Dementia behavioral disturbance: with behavioral disturbance Qualified Code(s): F01.51 - Vascular dementia with behavioral disturbance History of Present Illness Reason for Consultation: goals of care Requesting Physician: Dr. Ngo Attending Physician: Stephen Villa History of Present Illness 80 yo gentleman with multi-infarct dementia who had increased confusion, difficulty swallowing and functional decline. He has had some agitation during hospitalization and is currently lethargic and unable to converse. Per RN he has coughing and difficulty swallowing pudding and medications. He did have speech therapy evaluation with recommendation for easy to chew foods. Allergies Allergy/AdvReac Type Severity Reaction Status Date / Time Penicillins Allergy Mild Rash Verified 11/02/20 11:38 metformin Allergy Unknown Diarrhea Verified 11/02/20 11:38 metoprolol Allergy Unknown Confusion Verified 11/02/20 11:38 zolpidem [From Ambien] Allergy Unknown Verified 11/02/20 11:38 Home Medications Medication Instructions Recorded Confirmed Type acetaminophen 500 mg tablet 1,000 mg PO TID PRN #90 tab 12/20/18 11/02/20 History blood sugar diagnostic #10 ea 12/20/18 04/24/20 History cholecalciferol (vitamin D3) 25 1,000 units PO QAM cap 12/20/18 11/02/20 History mcg (1,000 unit) capsule ferrous sulfate 325 mg (65 mg 325 mg PO QAM tab 12/20/18 11/02/20 History iron) tablet lancets #50 ea 12/20/18 07/25/20 History lisinopril 40 mg tablet 40 mg PO QAM #90 tab 12/18/19 11/02/20 Rx sitagliptin 100 mg tablet 100 mg PO QAM #30 tab 03/21/20 11/02/20 Rx apixaban 2.5 mg tablet 2.5 mg PO BID #60 tab 04/22/20 11/02/20 Rx digoxin 125 mcg (0.125 mg) tablet 125 mcg PO QAM #90 tab 04/24/20 11/02/20 Rx atorvastatin 40 mg PO QAM 11/02/20 11/02/20 History glipizide 20 mg PO QAM 11/02/20 11/02/20 History sertraline 100 mg PO QAM 11/02/20 11/02/20 History Patient History Medical History (Updated 11/06/20 @ 14:21 by Destiny Ceballos MD) Anemia CAD (coronary artery disease) Cerebral atherosclerosis Chronic anticoagulation Dyslipidemia Gastroesophageal reflux disease GI (gastrointestinal bleed) Hypercalcemia Hyperparathyroidism Hypertension Insomnia Lower back pain Mild cognitive impairment Osteoarthritis of sternoclavicular joint Permanent atrial fibrillation 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 Vitamin D deficiency Surgical History 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) S/P aortic valve replacement S/P CABG (coronary artery bypass graft) S/P cataract surgery S/P tonsillectomy S/P total knee arthroplasty Family History Mother Coronary heart disease Myocardial infarction Father Coronary heart disease Myocardial infarction Brother Dementia Denies family history of Ovarian cancer Prostate cancer Breast cancer Colorectal cancer Social History Smoking Status: Never smoker Age Quit Using Tobacco: 42; Second Hand Exposure: No; Hx Alcohol Use: Yes Hx Substance Use: No Preferred Language: [place] Communication Ability: Effective Visual Impairment: No Limitations Hearing Ability: Normal Dot Etcher Apprentice Required: No Beliefs That Will Affect Care: None marital status: / Current Living Situation: Alone Current Living Situation Comment: Home alone current occupational status: retired Feels Safe at Home: Yes Safety Concerns: Feels Safe At This Time Childhood Exposure to Second-Hand Smoke: Yes during the past year weight has: remained stable Dental Care, Regularly: No Physical Activity Frequency: Daily Seatbelt Use: always Sunscreen Use: No Assistive Devices: Glasses Review of Systems Review of Systems: Unobtainable due to cognitive status and Unobtainable due to reduced consciousness Freeman Symptom Assessment Scale PainAD 0/3 Dyspnea by observation 0/3 Palliative Performance Score 20% Physical Exam Constitutional: + lethargic Respiratory: normal respiratory effort; no labored breathing Cardiovascular: Extremities: no edema Gastrointestinal (Abdomen): Percussion/Palpation: abdomen nontender Musculoskeletal: Extremities: extremities normal to inspection Neurologic: + not awake Results & Data ([facility]) Vital Signs (Past 12 Hours) Vital Signs Temp Pulse Resp BP Pulse Ox 11/06/20 07:12 98.8 F 91 H 16 96/63 L 90 PG Care Time/CCT Total # of Minutes Spent Total Time Spent with Patient: Total time spent is greater than 50% in coordination of care (as documented) at patient's floor/unit and/or counseling patient: total time spent is 65 minutes with more than 50% of time spent on goals of care, family update and support Coding Level of Care Code 24949 Initial Inpt Care Lvl 2 Diagnoses Dysphagia R13.10 Palliative care encounter Z51.5 Multi-infarct dementia F01.51 Dementia behavioral disturbance: with behavioral disturbance
[2020-11-06] MEDS ORDERED: LACTATED RINGER'S 1,000 ML IV SCH (14:45)
--- NOTE | 2020-11-06 16:58 | XRay Report ---
SINGLE VIEW CHEST CLINICAL HISTORY: Leukocytosis. FINDINGS: An AP, portable, semierect chest radiograph is compared to study dated 11/02/2020 and correl ated with chest CT dated 09/09/2007. The patient is status post midline sternotomy and aortic valve steele rgery. The heart is enlarged noting atherosclerotic calcification of the thoracic aorta. The pulmonar y vasculature is noncongested. The mitral annulus is densely calcified. Atelectasis is noted at the l tiera bases, left greater than right. No airspace consolidation or large pleural effusion is identified . No pneumothorax is seen. The skeletal structures are osteopenic. The bony thorax is grossly intact. Advanced arthritic change is seen in the shoulders, right greater than left. There are large calcifi ed joint bodies in the right shoulder. Advanced atherosclerotic calcification is seen in the carotid bulbs. IMPRESSION: Cardiomegaly with no acute cardiopulmonary abnormality. ACT 112: Negative or not required by law. Electronically signed by: Alexandr Sylvester M.D. 11/06/2020 4:57 PM
--- NOTE | 2020-11-06 22:15 | Hospitalist Progress Note ---
Date of Service November 06, 2020 Assessment & Plan (1) Multi-infarct dementia: Patient CT scan and history consistent with worsening multi-infarct dementia. - MRI brain was very limited, but shows small vessel disease. - Continue aspirin. - Patient will need placement. He has significant memory deficits, and I do not think he is capable of making his own medical decisions. He cannot tell me about his medical issues, what we could do to treat them, or alternatives to our offered treatment. He cannot recall his home or safety plans. - PT/OT evaluation, CM working toward [facility]. Will be tough to place as he is quite aggressive. Will start Seroquel 25 mg PO BID to help. This has a known black box warning for use in the elderly with dementia; however, given his agitation and aggression, he is posing a risk to himself. On 11/06 Patient has been asleep. Patient appears to not tolerate the BID dose of seroquel. Will given an HS dose today and see how patient responds in AM without the morning dose. Do not want to alter day night cycle. Had discussion with Jacinto. Appears siblings have not been communicating as palliative care has been talking with Josue/Jostin. Explained that patient has dementia and is having difficulty eating. Reviewing notes from PCP, it appears he has a poor prognosis. Family needs to discuss goals of care moving forward (2) Dysphagia: Son mentioned that the patient is having some swallowing difficulty. Patient denied this. - Seen on 11/03. TEXTILE SUPERVISOR recommended: * Easy to chew diet * Fully alert and upright for eating * Usual aspiration precautions (3) Permanent atrial fibrillation: This appears to be paroxysmal atrial fibrillation the patient is currently in normal sinus rhythm. - Continue Eliquis 2.5 mg PO BID (4) Hypertension: BP today was 120/75. - Continue lisinopril 40 mg PO daily (5) CAD (coronary artery disease): No complaint of chest pain. - Low-dose aspirin as noted above. 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 A1c was 12.1%. - Diabetic diet - Sliding scale insulin -> Blood sugars generally at 125 - 200. (7) DVT prophylaxis: Eliquis for afib Admission and Anticipated Discharge Date Admission Date: November 02, 2020 Subjective Patient has been drowsy. Review of Systems Review of Systems: All systems reviewed & are unremarkable except as noted in HPI & below Physical Exam Physical Exam: Constitutional: WD/WN, vitals as above SEDATED Eyes: EOM intact bilaterally; no conjunctival abnormality ENMT: external ear and nose normal, oropharynx normal Neck: trachea midline, no thyromegaly normal visual inspection Respiratory: normal respiratory effort, lungs clear to auscultation no respiratory distress Cardiovascular: RRR, no murmur, no edema Gastrointestinal (Abdomen): Inspection/Auscultation: abdomen normal to inspection; abdomen not distended Musculoskeletal: no cyanosis or clubbing, extremities motor strength 5/5 Skin: no rashes, warm and dry Neurologic: resting comfortably Psychiatric: Orientation: + not alert, + not oriented to place, + not oriented to time and + uncooperative Results & Data Results & Data ([facility]) Vital Signs (Past 12 Hours) Vital Signs Temp Pulse Resp BP Pulse Ox 11/06/20 14:57 37.2 C 110 H 16 97/63 L 90 PG Care Time/CCT Total # of Minutes Spent Total Time Spent with Patient: Total time spent is greater than 50% in coordination of care (as documented) at patient's floor/unit and/or counseling patient: Coding Level of Care Code 63599 Subseq Hosp Care Lvl 3 Diagnoses Multi-infarct dementia F01.51 Dementia behavioral disturbance: with behavioral disturbance Dysphagia R13.10 Permanent atrial fibrillation I48.21 Hypertension I10 CAD (coronary artery disease) I25.10 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
[2020-11-07 08:16] LABS: Basophils # (auto) 0.01 K/uL (0-0.2); Basophils % (auto) 0.1 %; Eosinophils # (auto) 0.07 K/uL (0-0.5); Eosinophils % (auto) 0.6 %; Hematocrit (blood only) 38.8 % (42-52); Hemoglobin 12.8 g/dL (14.0-18.0); Immature Granulocytes # (auto) 0.03 K/uL (0.00-0.02); Immature Granulocytes % (auto) 0.3 %; Lymphocytes # (auto) 1.37 K/uL (1.2-3.4); Lymphocytes % (auto) 12.2 %; Mean Corpuscular Volume 90.9 fL (80-100); Mean Platelet Volume 9.3 fL (7.4-10.4); Monocytes # (auto) 0.92 K/uL (0.11-0.59); Monocytes % (auto) 8.2 %; Neutrophils # (auto) 8.79 K/uL (1.4-6.5); Neutrophils % (auto) 78.6 %; Platelet Count 246 K/uL (130-400); RDW Coefficient of Variation 12.7 % (11.5-14.5); RDW Standard Deviation 42.3 fL (36.4-46.3); Red Blood Count 4.27 M/uL (4.7-6.1); White Blood Count 11.19 K/uL (4.8-10.8)
[2020-11-07 08:40] LABS: BUN Creatinine Ratio 35.7 (10-20); Calcium 9.9 mg/dl (8.5-10.1); Creatinine Clr Calc Pharmacy 23.6 ml/min; Est GFR (African American) 31.5 ml/min; Est GFR (Non-African American) 27.2 ml/min; Potassium 4.2 mmol/L (3.5-5.1)
[2020-11-07] MEDS: ASPIRIN 81 MG ECTAB PO SCH (09:04)
[2020-11-07] MEDS: APIXABAN 2.5 MG TAB PO SCH ×2 (09:04→19:32)
[2020-11-07] MEDS: FERROUS SULFATE 325 MG TAB PO SCH (09:04)
[2020-11-07] MEDS: ATORVASTATIN 40 MG TAB PO SCH (09:04)
[2020-11-07] MEDS: SERTRALINE HCL 100 MG TABLET PO SCH (09:05)
[2020-11-07] MEDS: CHOLECALCIFEROL 1,000 UNITS 25 MCG TAB PO SCH (09:05)
[2020-11-07] MEDS: INSULIN ASPART 100 UNITS/ML 3 ML PEN SC SCH ×4 (09:13→21:16)
[2020-11-07] MEDS: INSULIN GLARGINE SOLOSTAR 100 UNITS/ML 3 ML PEN SC SCH ×2 (09:14→21:17)
--- NOTE | 2020-11-07 11:25 | Pharmacy Report ---
Pharmacy Glycemic Short Note 2 - Date of Service November 07, 2020 - Glycemic Short BSG Results (Last 24 hours): 11/06/20 11/06/20 11/06/20 12:05 12:12 17:19 Glucose 192 H POC Glucose 186 H 189 H 11/06/20 11/07/20 11/07/20 20:25 07:43 08:20 Glucose 124 H POC Glucose 189 H 121 H OUTPATIENT ANTIDIABETIC REGIMEN: * Januvia 100mg PO QAM * Glipizide ER 20mg PO Daily * A1c = 12.1% (11/03/20) ASSESSMENT: 11/07 * Pt has received 31 units of insulin over the past 24hrs * 24 units of basal with Lantus * 7 units of bolus with NovoLog * BSGs 121-620-105-189-121 mg/dl * Lantus and NovoLog given late yesterday morning secondary to decreased PO intake. Rebound hyperglycemia occurred. No changes needed today since delay in insulin was the cause for hyperglycemia instead of inadequate orders. 11/05: * BSGs improved yesterday, 183, 146, 211, and 124 mg/dL * Received 35 units of insulin (20 units of basal and 15 units of prandial/correctional bolus) * Fasting BSG improved from yesterday (150 mg/dL this morning) * Patient with no documented PO intake today - will utilize scaled HS Lantus to account for this 11/03: * 80yo T2DM male with unknown degree of outpatient control - A1c pending this morning * Pt is maintained on oral antidiabetic agents as an outpatient * Oral agents are not recommended for inpatient use d/t drug interactions, changing PO intake, and difficulty titrating for acute hyper/hypoglycemia. ADA recommends re-initiating outpatient oral agents 1-2 days prior to discharge if/when appropriate if they were held on admission. * Will hold oral agents for admission and utilize SQ basal bolus insulin regimen which is the recommended regimen for inpatient glycemic control. * Will initiate weight based insulin dosing for insulin caitlin patient * Pt is NPO- will start conservatively and titrate based on BSG trends. PLAN FOR INPATIENT GLYCEMIC CONTROL: * Hold outpatient oral diabetes medications * Basal insulin * Lantus 12-14 units SC BID thereafter (see EHR for details) * Bolus insulin * NovoLog per scale ACHS or Q6hrs while NPO * Goal Range: Low 110 mg/dL - High 140 mg/dL * Correction Factor: 25 mg/dL/unit * Nutritional / Prandial insulin per carb ratio of 1 unit per 10 grams CHO consumed PLAN FOR DISCHARGE: * Patient has significant multi-infarct dementia, presenting with worsening confusion * Discharge recs will be largely dependent on goals of care and discharge disposition * A less stringent HbA1c goal with a focus on limiting hypoglycemia is likely the most appropriate treatment plan * eGFR is currently above 50 mL/min, so current outpatient oral agents are okay to continue at this time * If concerned for labile renal function, would consider discontinuing glipizide ER, as this may medication may increase likelihood of hypoglycemia in patients with renal impairment * Consider addition of once daily basal insulin, dose dependent on PO intake at discharge * At this point Lantus 20 units SC daily is reasonable (would recommend discontinuing glipizide if Lantus is initiated in order to limit incidence of hypoglycemia)
[2020-11-07] MEDS ORDERED: SODIUM CHLORIDE 0.45 % 1,000 ML IV SCH (12:00)
--- NOTE | 2020-11-07 13:16 | XRay Report ---
XR chest 1V portable HISTORY: right sided rhonchi COMPARISON: Chest 11/06/2020 FINDINGS: Low lung volumes. The heart remains borderline enlarged. Mild diffuse interstitial thickeni ng, unchanged. No new focal lung consolidations to suggest pneumonia. No evidence for pulmonary edema . Mitral annulus calcifications are again noted. There are poststernotomy changes. Advanced degenerat bella changes within the shoulders. Scoliosis. IMPRESSION: No significant change compared to the prior study. No acute process. Chronic interstitial thickening is again noted. ACT 112: Negative or not required by law. Electronically signed by: Federico Goldsmith M.D. 11/07/2020 1:15 PM
[2020-11-07] MEDS: metroNIDAZOLE 500 MG/100 ML BAG IV SCH ×2 (14:36→19:31)
[2020-11-07] MEDS: cefTRIAXone SODIUM 1,000 MG in DEXTROSE 5% 50 ML IV SCH (14:37)
--- NOTE | 2020-11-07 14:45 | Cardiology Progress Note ---
Date of Service November 07, 2020 Assessment & Plan (1) CAD (coronary artery disease): He has remote history of bypass grafting. This clinical condition has certainly deteriorated. However, we could continue secondary prevention with atorvastatin and apixaban. No current signs or symptoms of ischemic heart disease. (2) Permanent atrial fibrillation: He appears to have paroxysmal atrial fibrillation. He appeared to be in a sinus rhythm currently with frequent PVCs. An initial consult performed during this admission was for ventricular ectopy. Seems that the patient has had some difficulty taking beta-blockers previously. His digoxin was discontinued due to declining renal function. I do not believe he has had documented atrial fibrillation since admission. However, he could transition in and out of atrial fibrillation. It is also po ssible that some of his higher heart rates are related to ventricular ectopy or more likely dehydration. Patient has been eating and drinking little since admission. He clearly has dry mucous membranes. He is scheduled for intravenous hydration. I do not think he requires aggressive intervention for transiently elevated heart rates. If he has more sustained high heart rates and we will need an EKG. If he has atrial fibrillation he may need more aggressive rate control. All this needs to be taken in context of declining cognitive and physical function due to his dementia. (3) Valvular heart disease: History of bioprosthetic AVR. Normally functioning on last echocardiogram. Mild mitral regurgitation. Admission and Anticipated Discharge Date Admission Date: November 02, 2020 Subjective This afternoon the patient remained some mention of back discomfort. He did not appear to be cognizant of his current location and had difficulty answering questions correctly. According to the nursing staff he did not eat any lunch. He did swallow some pills with applesauce. He has been aggressive towards the nurses on occasion. Review of Systems Review of Systems: Unobtainable due to cognitive status Physical Exam Physical Exam: Alert. Responsive but poor insight and recall. Respiratory effort normal Cardiac rhythm regular with frequent ectopy Dry mucous membranes Results & Data ([facility]) Vital Signs (Past 12 Hours) Vital Signs Temp Pulse Resp BP Pulse Ox 11/07/20 07:36 37.1 C 117 H 20 122/69 91 Laboratory Results Abnormal Lab Results 11/06/20 11/06/20 11/07/20 17:19 20:25 07:43 WBC 11.19 H RBC 4.27 L Hgb 12.8 L Hct 38.8 L MCV 90.9 MCH 30.0 MCHC 33.0 RDW Std Deviation 42.3 RDW Coeff of Karlos 12.7 Plt Count 246 MPV 9.3 Immature Gran % (Auto) 0.3 Neut % (Auto) 78.6 Lymph % (Auto) 12.2 Delta % (Auto) 8.2 Eos % (Auto) 0.6 Baso % (Auto) 0.1 Neut # (Auto) 8.79 H Lymph # (Auto) 1.37 Delta # (Auto) 0.92 H Eos # (Auto) 0.07 Baso # (Auto) 0.01 Immature Gran # (Auto) 0.03 H Sodium Potassium Chloride Carbon Dioxide Anion Gap BUN Creatinine Est Cr Clr Drug Dosing Est GFR ( Amer) Est GFR (Non-Af Amer) BUN/Creatinine Ratio Glucose POC Glucose 189 H 189 H Calcium Procalcitonin 11/07/20 11/07/20 11/07/20 07:43 07:43 08:20 WBC RBC Hgb Hct MCV MCH MCHC RDW Std Deviation RDW Coeff of Karlos Plt Count MPV Immature Gran % (Auto) Neut % (Auto) Lymph % (Auto) Delta % (Auto) Eos % (Auto) Baso % (Auto) Neut # (Auto) Lymph # (Auto) Delta # (Auto) Eos # (Auto) Baso # (Auto) Immature Gran # (Auto) Sodium 142 Potassium 4.2 Chloride 112 H Carbon Dioxide 20 L Anion Gap 10.0 BUN 78 H Creatinine 2.18 H D Est Cr Clr Drug Dosing 23.6 Est GFR ( Amer) 31.5 Est GFR (Non-Af Amer) 27.2 BUN/Creatinine Ratio 35.7 H Glucose 124 H POC Glucose 121 H Calcium 9.9 Procalcitonin 0.07 11/07/20 12:25 WBC RBC Hgb Hct MCV MCH MCHC RDW Std Deviation RDW Coeff of Karlos Plt Count MPV Immature Gran % (Auto) Neut % (Auto) Lymph % (Auto) Delta % (Auto) Eos % (Auto) Baso % (Auto) Neut # (Auto) Lymph # (Auto) Delta # (Auto) Eos # (Auto) Baso # (Auto) Immature Gran # (Auto) Sodium Potassium Chloride Carbon Dioxide Anion Gap BUN Creatinine Est Cr Clr Drug Dosing Est GFR ( Amer) Est GFR (Non-Af Amer) BUN/Creatinine Ratio Glucose POC Glucose 147 H Calcium Procalcitonin Diagnostic Findings 11/03/2020: Small ventricular cavity, moderate LVH, preserved LV systolic function with ejection fraction greater than 70%. Severe left atrial dilation. Severe mitral annular calcification. Mild mitral regurgitation. PG Care Time/CCT Total # of Minutes Spent Total Time Spent with Patient: Total time spent is greater than 50% in coor dination of care (as documented) at patient's floor/unit and/or counseling patient: Coding Level of Care Code 35803 Subseq Hosp Care Lvl 3 Diagnoses CAD (coronary artery disease) I25.10 Permanent atrial fibrillation I48.21 Valvular heart disease I38
[2020-11-07] MEDS: QUEtiapine FUMARATE 25 MG TABLET PO SCH (19:32)
[2020-11-07] MEDS: LORazepam 1 MG TAB SL PRN (19:32)
--- NOTE | 2020-11-07 22:30 | Hospitalist Progress Note ---
Date of Service November 07, 2020 Assessment & Plan (1) Multi-infarct dementia: Patient CT scan and history consistent with worsening multi-infarct dementia. - MRI brain was very limited, but shows small vessel disease. - Continue aspirin. - Patient will need placement. He has significant memory deficits, and I do not think he is capable of making his own medical decisions. He cannot tell me about his medical issues, what we could do to treat them, or alternatives to our offered treatment. He cannot recall his home or safety plans. - PT/OT evaluation, CM working toward [facility]. Will be tough to place as he is quite aggressive. Will start Seroquel 25 mg PO BID to help. This has a known black box warning for use in the elderly with dementia; however, given his agitation and aggression, he is posing a risk to himself. On 11/06 Patient has been asleep. Patient appears to not tolerate the BID dose of seroquel. Will given an HS dose today and see how patient responds in AM without the morning dose. Do not want to alter day night cycle. Had discussion with Jacinto. Appears siblings have not been communicating as palliative care has been talking with Josue/Jostin. Explained that patient has dementia and is having difficulty eating. Reviewing notes from PCP, it appears he has a poor prognosis. Family needs to discuss goals of care moving forward On 11/07 Patient is more awake, Will try seroquel this PM. Josue will be coming in tomorrow. Will try to treat reversible causes for his delirum. If patient does not improve, then will need to discuss goals of care. (2) Dysphagia: Son mentioned that the patient is having some swallowing difficulty. Patient denied this. - Seen on 11/03. ELECTRIC TRANSFER OPERATOR recommended: * Easy to chew diet * Fully alert and upright for eating * Usual aspiration precautions (3) Permanent atrial fibrillation: This appears to be paroxysmal atrial fibrillation the patient is currently in normal sinus rhythm. - Continue Eliquis 2.5 mg PO BID (4) Hypertension: BP today was 120/75. - Continue lisinopril 40 mg PO daily (5) CAD (coronary artery disease): No complaint of chest pain. - Low-dose aspirin as noted above. 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 A1c was 12.1%. - Diabetic diet - Sliding scale insulin -> Blood sugars generally at 125 - 200. (7) DVT prophylaxis: Eliquis for afib (8) Acute kidney failure: will continue with intermittent IVF and closely monitor volume status Likely attributed to poor oral intake. Creatinine peaked at 2.49. Improving. Admission and Anticipated Discharge Date Admission Date: November 02, 2020 Subjective Patient is awake but not oriented. Patient is a poor historian. Review of Systems Review of Systems: All systems reviewed & are unremarkable except as noted in HPI & below Physical Exam Physical Exam: Constitutional: WD/WN, vitals as above, awake Eyes: EOM intact bilaterally; no conjunctival abnormality ENMT: external ear and nose normal, oropharynx normal Neck: trachea midline, no thyromegaly normal visual inspection Respiratory: normal respiratory effort, lungs clear to auscultation no respiratory distress Cardiovascular: RRR, no murmur, no edema Gastrointestinal (Abdomen): Inspection/Auscultation: abdomen normal to inspection; abdomen not distended Musculoskeletal: no cyanosis or clubbing, extremities motor strength 5/5 Skin: no rashes, warm and dry Neurologic: resting comfortably Psychiatric: Orientation: + not alert, + not oriented to place, + not oriented to time and + uncooperative Results & Data Results & Data ([facility]) Vital Signs (Past 12 Hours) Vital Signs Temp Pulse Resp BP Pulse Ox 11/07/20 15:48 37.5 C 96 H 16 121/63 91 PG Care Time/CCT Total # of Minutes Spent Total Time Spent with Patient: Total time spent is greater than 50% in coordination of care (as documented) at patient's floor/unit and/or counseling patient: Coding Level of Care Code 45737 Subseq Hosp Care Lvl 3 Diagnoses Multi-infarct dementia F01.51 Dementia behavioral disturbance: with behavioral disturbance Dysphagia R13.10 Permanent atrial fibrillation I48.21 Hypertension I10 CAD (coronary artery disease) I25.10 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
[2020-11-08] MEDS: metroNIDAZOLE 500 MG/100 ML BAG IV SCH ×3 (04:05→21:50)
--- NOTE | 2020-11-08 08:55 | Pharmacy Report ---
Pharmacy Glycemic Short Note 2 - Date of Service November 08, 2020 - Glycemic Short BSG Results (Last 24 hours): 11/07/20 11/07/20 11/07/20 12:25 : 20:36 POC Glucose 147 H 149 H 115 H 11/08/20 08:33 POC Glucose 101 H OUTPATIENT ANTIDIABETIC REGIMEN: * Januvia 100mg PO QAM * Glipizide ER 20mg PO Daily * A1c = 12.1% (11/03/20) ASSESSMENT: 11/08 * Pt has received 27 units of insulin over the past 24hrs * 24 units of basal with Lantus * 3 units of bolus with NovoLog * BSGs 549-424-997-115-101 mg/dl * Decreased PO intake yesterday therefore bolus insulin dosing low * AM fasting BSG = 101 mg/dl this morning. This is in goal range but probably too low for patient d/t advanced dementia and decrease PO. Will empirically lower Lantus to prevent LOW BSG tomorrow. 11/07 * Pt has received 31 units of insulin over the past 24hrs * 24 units of basal with Lantus * 7 units of bolus with NovoLog * BSGs 209-414-666-189-121 mg/dl * Lantus and NovoLog given late yesterday morning secondary to decreased PO inta ke. Rebound hyperglycemia occurred. No changes needed today since delay in insulin was the cause for hyperglycemia instead of inadequate orders. 11/05: * BSGs improved yesterday, 183, 146, 211, and 124 mg/dL * Received 35 units of insulin (20 units of basal and 15 units of prandial/correctional bolus) * Fasting BSG improved from yesterday (150 mg/dL this morning) * Patient with no documented PO intake today - will utilize scaled HS Lantus to account for this 11/03: * 80yo T2DM male with unknown degree of outpatient control - A1c pending this morning * Pt is maintained on oral antidiabetic agents as an outpatient * Oral agents are not recommended for inpatient use d/t drug interactions, changing PO intake, and difficulty titrating for acute hyper/hypoglycemia. ADA recommends re-initiating outpatient oral agents 1-2 days prior to discharge if/when appropriate if they were held on admission. * Will hold oral agents for admission and utilize SQ basal bolus insulin regimen which is the recommended regimen for inpatient glycemic control. * Will initiate weight based insulin dosing for insulin caitlin patient * Pt is NPO- will start conservatively and titrate based on BSG trends. PLAN FOR INPATIENT GLYCEMIC CONTROL: * Hold outpatient oral diabetes medications * Basal insulin- decrease dosing * Lantus 10-12 units SC BID thereafter (see EHR for details) * Bolus insulin- no change * NovoLog per scale ACHS or Q6hrs while NPO * Goal Range: Low 110 mg/dL - High 140 mg/dL * Correction Factor: 25 mg/dL/unit * Nutritional / Prandial insulin per carb ratio of 1 unit per 10 grams CHO consumed PLAN FOR DISCHARGE: * Patient has significant multi-infarct dementia, presenting with worsening confusion * Discharge recs will be largely dependent on goals of care and discharge disposition * A less stringent HbA1c goal with a focus on limiting hypoglycemia is likely the most appropriate treatment plan * eGFR is currently above 50 mL/min, so current outpatient oral agents are okay to continue at this time * If concerned for labile renal function, would consider discontinuing glipizide ER, as this may medication may increase likelihood of hypoglycemia in patients with renal impairment * Consider addition of once daily basal insulin, dose dependent on PO intake at discharge * At this point Lantus 20 units SC daily is reasonable (would recommend discontinuing glipizide if Lantus is initiated in order to limit incidence of hypoglycemia)
[2020-11-08 09:11] LABS: Basophils # (auto) 0.02 K/uL (0-0.2); Basophils % (auto) 0.2 %; Eosinophils # (auto) 0.09 K/uL (0-0.5); Eosinophils % (auto) 0.8 %; Hemoglobin 12.8 g/dL (14.0-18.0); Immature Granulocytes # (auto) 0.03 K/uL (0.00-0.02); Immature Granulocytes % (auto) 0.3 %; Lymphocytes # (auto) 1.02 K/uL (1.2-3.4); Lymphocytes % (auto) 8.6 %; Mean Corpuscular Hgb Conc 32.8 g/dL (32-36); Mean Corpuscular Volume 91.3 fL (80-100); Mean Platelet Volume 9.2 fL (7.4-10.4); Monocytes % (auto) 7.6 %; Neutrophils # (auto) 9.78 K/uL (1.4-6.5); Neutrophils % (auto) 82.5 %; Platelet Count 259 K/uL (130-400); RDW Coefficient of Variation 12.6 % (11.5-14.5); RDW Standard Deviation 42.4 fL (36.4-46.3); Red Blood Count 4.27 M/uL (4.7-6.1); White Blood Count 11.84 K/uL (4.8-10.8)
[2020-11-08 09:30] LABS: BUN Creatinine Ratio 46.8 (10-20); Calcium 10.3 mg/dl (8.5-10.1); Creatinine Clr Calc Pharmacy 28.9 ml/min; Est GFR (African American) 40.3 ml/min; Est GFR (Non-African American) 34.8 ml/min; Potassium 4.5 mmol/L (3.5-5.1)
[2020-11-08] MEDS: INSULIN ASPART 100 UNITS/ML 3 ML PEN SC SCH ×4 (10:13→21:39)
[2020-11-08] MEDS: CHOLECALCIFEROL 1,000 UNITS 25 MCG TAB PO SCH (10:56)
[2020-11-08] MEDS: FERROUS SULFATE 325 MG TAB PO SCH (10:56)
[2020-11-08] MEDS: ATORVASTATIN 40 MG TAB PO SCH (10:56)
[2020-11-08] MEDS: ASPIRIN 81 MG ECTAB PO SCH (10:56)
[2020-11-08] MEDS: SERTRALINE HCL 100 MG TABLET PO SCH (10:57)
[2020-11-08] MEDS: APIXABAN 2.5 MG TAB PO SCH ×2 (10:57→23:03)
[2020-11-08] MEDS: INSULIN GLARGINE SOLOSTAR 100 UNITS/ML 3 ML PEN SC SCH ×2 (11:30→21:30)
[2020-11-08] MEDS: cefTRIAXone SODIUM 1,000 MG in DEXTROSE 5% 50 ML IV SCH (11:57)
[2020-11-08] MEDS ORDERED: SODIUM CHLORIDE 0.45 % 1,000 ML IV SCH (14:00)
[2020-11-08] MEDS: ATROPINE SULFATE 1% OP SOLN 5 ML BTL PO PRN (15:04)
[2020-11-08] MEDS ORDERED: SCOPOLAMINE 1 MG TDSY TD SCH (16:00)
[2020-11-08] MEDS: CHECK SCOPOLAMINE PATCH PLACEMENT SCH ×2 (16:58→23:06)
[2020-11-08] MEDS ORDERED: QUEtiapine FUMARATE 25 MG TABLET PO SCH (21:00)
[2020-11-08] MEDS: PANTOprazole 40 MG in SYRINGE 0 ML IV SCH (21:51)
--- NOTE | 2020-11-08 22:10 | Hospitalist Progress Note ---
Date of Service November 08, 2020 Assessment & Plan (1) Multi-infarct dementia: Patient CT scan and history consistent with worsening multi-infarct dementia. - MRI brain was very limited, but shows small vessel disease. - Continue aspirin. - Patient will need placement. He has significant memory deficits, and I do not think he is capable of making his own medical decisions. He cannot tell me about his medical issues, what we could do to treat them, or alternatives to our offered treatment. He cannot recall his home or safety plans. - PT/OT evaluation, CM working toward [facility]. Will be tough to place as he is quite aggressive. Will start Seroquel 25 mg PO BID to help. This has a known black box warning for use in the elderly with dementia; however, given his agitation and aggression, he is posing a risk to himself. On 11/06 Patient has been asleep. Patient appears to not tolerate the BID dose of seroquel. Will given an HS dose today and see how patient responds in AM without the morning dose. Do not want to alter day night cycle. Had discussion with Jacinto. Appears siblings have not been communicating as palliative care has been talking with Gabino/Jostin. Explained that patient has dementia and is having difficulty eating. Reviewing notes from PCP, it appears he has a poor prognosis. Family needs to discuss goals of care moving forward On 11/07 Patient is more awake, Will try seroquel this PM. Gabino will be coming in tomorrow. Will try to treat reversible causes for his delirum. If patient does not improve, then will need to discuss goals of care. On 11/08 Patient again is sedated. Patient received PRN lorazepam and seroquel during evening shift as patient was agitated. Had multiple discussions with son Truman (GABINO). Appears family is not ready to go the comfort route. He is frustrated at how he has deteriorated during this hospital stay. Despite the fact that patient has advanced dementia. Explained that this is likely a combination of his advance dementia as well as his delirium. Patient was very agitated during hospital stay and required benzos and seroquel by previous provider. Explained that we have been titrating his medications lower. He is asking for a second opinion. I explained to the family that I had inherited him in this state and am treating reversible causes for his delirium: antibiotics for possible aspiration pneumonia, decreasing benzo, keeping day night cycle, acute kidney injury. Son is asking about stopping seroquel. Explained that he was on a higher dose and this has been titrating down. During hospital stay he has taken lorazepam and olanzapine which likely has played a role with his sedation. He also likely has hospital acquired delirium as family states that he has had this in the past. Gabino asked for a second opinion on treating his delirium. D/W neurology who agrees with titrating the seroquel, may consider using trazodone. Patient is sedated tonight and likely willl not require any medications. If patient does not awake, will discuss possibility of PPN. Also started atropine and scopolamine patch and suction to help. Will have another discussion with Gabino tomorrow. (2) Dysphagia: Son mentioned that the patient is having some swallowing difficulty. Patient denied this. - Seen on 11/03. RISK MODELER recommended: * Easy to chew diet * Fully alert and upright for eating * Usual aspiration precautions (3) Permanent atrial fibrillation: This appears to be paroxysmal atrial fibrillation the patient is currently in normal sinus rhythm. - Continue Eliquis 2.5 mg PO BID (4) Hypertension: BP today was 120/75. - Continue lisinopril 40 mg PO daily (5) CAD (coronary artery disease): No complaint of chest pain. - Low-dose aspirin as noted above. 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 A1c was 12.1%. - Diabetic diet - Sliding scale insulin -> Blood sugars generally at 125 - 200. (7) DVT prophylaxis: Eliquis for afib (8) Acute kidney failure: will continue with intermittent IVF and closely monitor volume status Likely attributed to poor oral intake. Creatinine peaked at 2.49. Improving, now at 1.7 Admission and Anticipated Discharge Date Admission Date: November 02, 2020 Subjective Patient is lethargic today. Review of Systems Review of Systems: All systems reviewed & are unremarkable except as noted in HPI & below Physical Exam Physical Exam: Constitutional: WD/WN, vitals as above, awake Eyes: EOM intact bilaterally; no conjunctival abnormality ENMT: external ear and nose normal, oropharynx normal Neck: trachea midline, no thyromegaly normal visual inspection Respiratory: normal respiratory effort, lungs clear to auscultation no respiratory distress Cardiovascular: RRR, no murmur, no edema Gastrointestinal (Abdomen): Inspection/Auscultation: abdomen normal to inspect ion; abdomen not distended Musculoskeletal: no cyanosis or clubbing, Skin: no rashes, warm and dry Neurologic: resting comfortably Psychiatric: Orientation: + not alert, + not oriented to place, + not oriented to time and + uncooperative Results & Data Results & Data ([facility]) Vital Signs (Past 12 Hours) Vital Signs Temp Pulse Resp BP BP Pulse Ox 11/08/20 21:32 38.1 C H 11/08/20 18:49 37.5 C 124 H 24 116/70 92 11/08/20 10:15 120 H 134/77 95 PG Care Time/CCT Total # of Minutes Spent Total Time Spent with Patient: Total time spent is greater than 50% in coordination of care (as documented) at patient's floor/unit and/or counseling patient: Prolonged Care Time Prolonged Care Time: Yes Total Prolonged Care Time: 90 9:30 to 10:00 14:10 to 14:40 17:00 to 17:15 17:30 to 17:35 18:00 to 18:10 Coding Level of Care Code 00356 Subseq Hosp Care Lvl 3 (25 - SIGNIFICANT, SEPARATELY IDENTIFIABLE ) Diagnoses Multi-infarct dementia F01.51 Dementia behavioral disturbance: with behavioral disturbance Dysphagia R13.10 Permanent atrial fibrillation I48.21 Hypertension I10 CAD (coronary artery disease) I25.10 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
--- NOTE | 2020-11-08 22:19 | Communication Note ---
Date of Service: November 08, 2020 Notified by nursing that there were concerns in regards to the patients mental status. Per report patient had been lethargic throughout the day and had diff iculties in regards to taking medications. Per review of previous notation patient was able to eat a few bites of apple sauce and several sips of water after lunch. Nursing notes that patient was fed by his son. Throughout the evening patient's mental status has continued to deteriorate and he primarily only responds to painful stimuli. Evaluated patient at the bedside. Patient will open and close eyes and attempt to draw away from painful stimuli, but cannot follow any instructions nor appears to be alert or oriented. PE: Neuro - Not alert or oriented. Lethargic. Responds to painful stimuli Heart - tachycardic, no audible murmur Lungs - tachypneic at 30+ breaths/min, very tight and course upper airway sounds. Abdomen - soft Plan: -Ordered for CBC, CMP, ABG, Lactic, CXR -CXR image not available at this time, however, report noting no significant changes from previous XR on 11/07/20 -With patient's altered mental status and recent feedings earlier this afternoon, suspect that his worsening respiratory status is due to aspiration -Will order for CT chest -Will also order for CT head to r/o bleed as patient has been on Eliquis -Discussed this initially with patient's son Jostin, whom then asked me to discuss with his other son Truman (Josue). -Truman noted that in the event that the patient's respiratory status worsened to the point of requiring intubation, that he would not want that for his father. -Truman notes that he would want his father to receive chest compressions, medications, and electrical shock should he need it. -Code status changed to Conditional code - DNI in the chart. -Will continue to monitor patient throughout the night for worsening respiratory status. -As he is fairly lethargic there are concerns in regards to utilizing BIPAP as patient is already less likely to protect his airway, will consider if symptoms worsen. -Will also consider steroids if respiratory status deteriorates. Resident Activity Tracking Resident Involvement: Resident Care Provided and Fly Fishing Guide Coverage Note Care Provided: Adult Hospital Medicine
[2020-11-08 22:43] LABS: Basophils # (auto) 0.01 K/uL (0-0.2); Basophils % (auto) 0.1 %; Hematocrit (blood only) 38.5 % (42-52); Hemoglobin 12.6 g/dL (14.0-18.0); Immature Granulocytes # (auto) 0.04 K/uL (0.00-0.02); Immature Granulocytes % (auto) 0.3 %; Lymphocytes # (auto) 1.02 K/uL (1.2-3.4); Lymphocytes % (auto) 8.3 %; Mean Corpuscular Volume 91.7 fL (80-100); Mean Platelet Volume 9.5 fL (7.4-10.4); Monocytes # (auto) 0.94 K/uL (0.11-0.59); Monocytes % (auto) 7.6 %; Neutrophils # (auto) 10.29 K/uL (1.4-6.5); Neutrophils % (auto) 83.7 %; Platelet Count 271 K/uL (130-400); RDW Coefficient of Variation 12.6 % (11.5-14.5); RDW Standard Deviation 42.5 fL (36.4-46.3)
[2020-11-08] MEDS ORDERED: ALBUT/IPRATROP 3MG/0.5MG NEB 3 ML VIAL NEB STA (22:43)
[2020-11-08 22:46] LABS: Base Excess ABG -6.9 mEq/L (-9-1.8); HCO3 ABG 17 mmol/L (19-24); Oxygen Saturation ABG 96.6 % (90-95); PCO2 ABG 31 mmHg (35-46); PO2 ABG 87 mmHg (80-95); pH ABG 7.36 (7.35-7.45)
[2020-11-08 22:47] LABS: Allen Test Pos (Pos)
--- NOTE | 2020-11-08 22:55 | XRay Report ---
XR chest 1V portable HISTORY: Tachypnea. COMPARISON: Chest 11/07/2020. FINDINGS: There are low lung volumes. The heart remains enlarged. There are poststernotomy changes an d an aortic valve prosthesis. No new focal lung consolidations to suggest pneumonia. Slightly rotated study. Mild chronic interstitial thickening persists. No evidence for pulmonary edema. Mitral anus c alcifications are present. IMPRESSION: No significant change compared to the prior study. No acute process. ACT 112: Negative or not required by law. Electronically signed by: Federico Goldsmith M.D. 11/08/2020 10:53 PM
[2020-11-08 22:56] LABS: Mean Corpuscular Hgb Conc 32.7 g/dL (32-36)
[2020-11-08 23:00] LABS: BUN Creatinine Ratio 45.7 (10-20); Calcium 9.8 mg/dl (8.5-10.1); Creatinine Clr Calc Pharmacy 32.9 ml/min; Est GFR (African American) 47.2 ml/min; Est GFR (Non-African American) 40.8 ml/min; Potassium 4.7 mmol/L (3.5-5.1)
[2020-11-09 00:09] LABS: Albumin Level 2.9 gm/dl (3.4-5.0); Bilirubin Direct 0.2 mg/dl (0-0.2); Bilirubin,Total 0.6 mg/dl (0.2-1); Total Protein 7.6 gm/dl (6.4-8.2)
[2020-11-09] MEDS: metroNIDAZOLE 500 MG/100 ML BAG IV SCH ×3 (04:37→22:56)
[2020-11-09] MEDS: ATROPINE SULFATE 1% OP SOLN 5 ML BTL PO PRN ×3 (04:40→12:51)
[2020-11-09 07:32] LABS: Hematocrit (blood only) 37.6 % (42-52); Hemoglobin 12.2 g/dL (14.0-18.0); Mean Corpuscular Hemoglobin 29.5 pg (25-34); Mean Corpuscular Hgb Conc 32.4 g/dL (32-36); Mean Platelet Volume 9.3 fL (7.4-10.4); Platelet Count 245 K/uL (130-400); RDW Coefficient of Variation 12.6 % (11.5-14.5); RDW Standard Deviation 42.2 fL (36.4-46.3); Red Blood Count 4.13 M/uL (4.7-6.1); White Blood Count 12.37 K/uL (4.8-10.8)
[2020-11-09] MEDS: CHECK SCOPOLAMINE PATCH PLACEMENT SCH ×3 (07:58→23:22)
--- NOTE | 2020-11-09 07:58 | CT Scan Report ---
CT head/brain wo con CLINICAL HISTORY: ams COMPARISON STUDY: November 02, 2020 TECHNIQUE: Axial CT of the brain is performed from the vertex to the skull base. IV contrast was not administered for this examination. A dose lowering technique was utilized adhering to the principles of ALARA. CT DOSE: 1437.29 mGy.cm FINDINGS: No intra or extra-axial mass lesions are visualized. There is no CT evidence of acute cortical infarc tion. There is no evidence of midline shift. There is no acute hemorrhage. No acute depressed calvar ial fractures are visualized. There are patchy white matter hypodensities likely on a small vessel basis. Redemonstration of bilateral basal ganglia infarcts which are also seen on recent prior study. Atrophic changes of brain parenchyma are seen and associated disc mild ex vacuo dilatation of ventric les. Visualized paranasal sinuses and mastoid air cells are patent and well-aerated. IMPRESSION: 1. No acute intracranial hemorrhage, no midline shift or space occupying lesions. 2. Stable lacunar infarct within the basal ganglia. 3. Atrophic changes of brain parenchyma associated with ex vacuo dilatation of ventricles. 4. Chronic small vessel ischemia. ACT 112: Negative or not required by law. The above report was generated using voice recognition software. It may contain grammatical, syntax o r spelling errors. Electronically signed by: Mary Mendoza DO 11/09/2020 7:57 AM
[2020-11-09] MEDS: CHOLECALCIFEROL 1,000 UNITS 25 MCG TAB PO SCH (07:59)
[2020-11-09] MEDS: APIXABAN 2.5 MG TAB PO SCH ×2 (07:59→22:56)
[2020-11-09] MEDS: SERTRALINE HCL 100 MG TABLET PO SCH (07:59)
[2020-11-09] MEDS: PANTOprazole 40 MG in SYRINGE 0 ML IV SCH ×2 (07:59→22:57)
[2020-11-09] MEDS: ATORVASTATIN 40 MG TAB PO SCH (07:59)
[2020-11-09] MEDS: ASPIRIN 81 MG ECTAB PO SCH (07:59)
[2020-11-09] MEDS: FERROUS SULFATE 325 MG TAB PO SCH (07:59)
[2020-11-09 08:02] LABS: BUN Creatinine Ratio 47.7 (10-20); Calcium 9.9 mg/dl (8.5-10.1); Creatinine Clr Calc Pharmacy 32.3 ml/min; Est GFR (African American) 46.2 ml/min; Est GFR (Non-African American) 39.8 ml/min; Potassium 4.9 mmol/L (3.5-5.1)
--- NOTE | 2020-11-09 08:10 | CT Scan Report ---
CT chest diagnostic wo con CLINICAL HISTORY: worsening tachypnea COMPARISON STUDY: September 09, 2007 CT DOSE: TECHNIQUE: CT of the thorax was performed from the thoracic inlet to the lung bases. Images are revi ewed in the axial, sagittal, and coronal planes. IV contrast was not administered for this examinatio n. A dose lowering technique was utilized adhering to the principles of ALARA. FINDINGS: There is no axillary, supra clavicle or internal mammary lymphadenopathy seen. Multiple mediastinal l ymph nodes are seen measuring up to 1.2 cm in short axis. Evaluation is limited due to motion artifact. Thyroid: Imaged portions of the thyroid gland are normal in appearance. Thoracic aorta: Is normal in caliber with heavy calcifications of its wall. Main pulmonary artery is dilated measuring 3.3 cm in diameter which could be seen in pulmonary hypert ension. Heart: Mild four-chamber cardiomegaly. Prosthetic aortic valve is seen. Heavy calcifications of the m itral annulus and coronary arteries are seen. Lungs and pleural spaces: Trachea is patent. This study is acquired during partial expiratory phase. Significant narrowing/collapse of the right m ainstem bronchus might represent bronchomalacia. No large infiltrates or consolidative lesions are seen. Possible atelectasis at dependent portions of bilateral lower lobes. Evaluation of lung parenchyma is significantly limited due to motion artifact . Upper abdomen: No definite acute abnormalities. Possible right renal cyst. Evaluation is limited due to significant motion artifact. Skeletal structures: Osteopenia. Degenerative changes of the spine. Sternotomy defect. Severe degener ative changes of bilateral shoulder joints. IMPRESSION: 1. No large infiltrates or consolidative lesions are seen. Small atelectasis at dependent portions o f bilateral lower lobes 2. Possible bronchomalacia involving right mainstem bronchus. Evaluation of pulmonary parenchyma is significantly limited due to motion artifact. 3. Dilated main pulmonary artery which could be seen in pulmonary hypertension. 4. Mild four-chamber cardiomegaly. Status post aortic valve replacement. 5. Heavy coronary calcifications. Atherosclerosis. 6. Other findings as above. ACT 112: Negative or not required by law. The above report was generated using voice recognition software. It may contain grammatical, syntax o r spelling errors. Electronically signed by: Mary Mendoza DO 11/09/2020 8:09 AM
[2020-11-09] MEDS ORDERED: NORMOSOL-R 1,000 ML IV SCH (08:45)
[2020-11-09] MEDS ORDERED: TPN/PPN CONSULT PHARMACY PRN (09:27)
[2020-11-09] MEDS: INSULIN GLARGINE SOLOSTAR 100 UNITS/ML 3 ML PEN SC SCH ×2 (09:39→22:57)
[2020-11-09] MEDS: INSULIN ASPART 100 UNITS/ML 3 ML PEN SC SCH ×4 (09:40→22:56)
[2020-11-09] MEDS ORDERED: TPN/PPN CONSULT PHARMACY STA (09:40)
--- NOTE | 2020-11-09 09:54 | Neurology Consultation ---
Date of Consultation November 09, 2020 Assessment & Plan (1) Dementia: Dementia, probably multi-infarct type with progressive decline over many years, with tendency for delirium, agitation, and aggressive behavior, especially in the context of current hospitalization. No evidence of acute or subacute stroke on recent neuroimaging. Clinical picture not suggestive of seizures or encephalitis. Patient's agitation has been difficult from a management perspective. Has been treated with lorazepam, Zyprexa, and Seroquel although these medications have resulted in some lethargy. The lorazepam and Zyprexa have been discontinued. He currently has an order for a low-dose of Seroquel at bedtime. He has been on donepezil and mirtazapine previously. The donepezil had been discontinued due to lack of any perceivable benefit. At this point, I would recommend a trial of trazodone to be taken at bedtime. This medication may improve sleep and cognitive functioning in patients with dementia. Would start with 50 mg taken at bedtime. Discontinue low-dose Seroquel at bedtime for the time being. I do not think restarting cognitive enhancers such as donepezil or memantine would be of much benefit during this hospitalization and may confound his behavior management. However, restarting trials of such medications could be undertaken in the outpatient setting. 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 He was evaluated by Dr. Valente for an episode of delirium in 2012 that occurred in the context of a hospitalization and what was likely mild dementia at that point in time. Over time, however, his cognitive functioning has continued to decline. He had scored 3 out of 10 on a mini cognitive assessment last November with his PCP. I reviewed Dr. Kraus's last clinic note from this past July which indicates progressive dementia and lack of benefit with donepezil which was subsequently discontinued. He has difficulty with memory, and confusion have been documented in the outpatient record. He had presented to the emergency department on November 02 for confusion, recurrent falls, and concern regarding safety at home. 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 Cardiology has been following during this hospitalization and palliative care has been consulted as well. Patient has been noted to exhibit episodes of increasing confusion, agitation, and aggressive behavior during this hospitalization. He has been treated with lorazepam, Zyprexa, and Seroquel although he has exhibited subsequent lethargy, Zyprexa and lorazepam were discontinued. He has an order for a low-dose of Seroquel to be given at bedtime, does not look like he received this medication last night, however. A CT of the head completed last night was negative for hemorrhage or acute process. There is atrophy and chronic bilateral basal ganglia infarcts as well as chronic small vessel ischemic change. A brain MRI completed November 02 was technically limited with only a few sequences including DWI and coronal FLAIR imaging. No evidence of acute process at that time. No hydrocephalus. I reviewed the images as well as the radiologist's interpretation of these tests. The patient is somnolent this morning and does not arouse with voice, tactile, or noxious stimulation. Allergies Allergy/AdvReac Type Severity Reaction Status Date / Time Penicillins Allergy Mild Rash Verified 11/02/20 11:38 metformin Allergy Unknown Diarrhea Verified 11/02/20 11:38 metoprolol Allergy Unknown Confusion Verified 11/02/20 11:38 zolpidem [From Ambien] Allergy Unknown Verified 11/02/20 11:38 Home Medications Medication Instructions Recorded Confirmed Type acetaminophen 500 mg tablet 1,000 mg PO TID PRN #90 tab 12/20/18 11/02/20 History blood sugar diagnostic #10 ea 12/20/18 04/24/20 History cholecalciferol (vitamin D3) 25 1,000 units PO QAM cap 12/20/18 11/02/20 History mcg (1,000 unit) capsule ferrous sulfate 325 mg (65 mg 325 mg PO QAM tab 12/20/18 11/02/20 History iron) tablet lancets #50 ea 12/20/18 07/25/20 History lisinopril 40 mg tablet 40 mg PO QAM #90 tab 12/18/19 11/02/20 Rx sitagliptin 100 mg tablet 100 mg PO QAM #30 tab 03/21/20 11/02/20 Rx apixaban 2.5 mg tablet 2.5 mg PO BID #60 tab 04/22/20 11/02/20 Rx digoxin 125 mcg (0.125 mg) tablet 125 mcg PO QAM #90 tab 04/24/20 11/02/20 Rx atorvastatin 40 mg PO QAM 11/02/20 11/02/20 History glipizide 20 mg PO QAM 11/02/20 11/02/20 History sertraline 100 mg PO QAM 11/02/20 11/02/20 History Patient History Medical History Anemia CAD (coronary artery disease) Cerebral atherosclerosis Chronic anticoagulation Dyslipidemia Gastroesophageal reflux disease GI (gastrointestinal bleed) Hypercalcemia Hyperparathyroidism Hypertension Insomnia Lower back pain Mild cognitive impairment Osteoarthritis of sternoclavicular joint Permanent atrial fibrillation 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 Vitamin D deficiency Surgical History 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) S/P aortic valve replacement S/P CABG (coronary artery bypass graft) S/P cataract surgery S/P tonsillectomy S/P total knee arthroplasty Family History Mother Coronary heart disease Myocardial infarction Father Coronary heart disease Myocardial infarction Brother Dementia Denies family history of Ovarian cancer Prostate cancer Breast cancer Colorectal cancer Social History Smoking Status: Never smoker Age Quit Using Tobacco: 42; Second Hand Exposure: No; Hx Alcohol Use: Yes Hx Substance Use: No Preferred Language: Kazakh Communication Ability: Effective Visual Impairment: No Limitations Hearing Ability: Normal Sole Stapler Welt Required: No Beliefs That Will Affect Care: None marital status: / Current Living Situation: Alone Current Living Situation Comment: Home alone current occupational status: retired Feels Safe at Home: Yes Safety Concerns: Feels Safe At This Time Childhood Exposure to Second-Hand Smoke: Yes during the past year weight has: remained stable Dental Care, Regularly: No Physical Activity Frequency: Daily Seatbelt Use: always Sunscreen Use: No Assistive Devices: Walker Review of Systems Review of Systems: Unobtainable due to reduced consciousness Exam (Neuro) Physical Exam: Limited examination as patient does not arouse from sleep this morning. He does not arouse to voice, tactile, or noxious stimulation. He does withdraw his limbs. No abnormal movements observed. Muscle tone normal. Pupils equal round reactive to light. No gaze preference. Oculocephalic, and blink reflexes intact. Results & Data ([facility]) Vital Signs (Past 12 Hours) Vital Signs Temp Pulse Resp BP Pulse Ox 11/09/20 07:54 36.8 C 118 H 25 H 113/73 96 11/08/20 23:29 36.8 C 128 H 25 H 113/62 91 11/08/20 22:40 125 H 32 H Laboratory Results WBC 12.37, hemoglobin 12.2, hematocrit 37.6, platelet count 245, sodium 144, potassium 4.9, BUN 76, creatinine 1.59, glucose 168, AST 29, ALT 19, vitamin B12 from December 2018 426, TSH 1.[address] of the head and brain MRI are as described in the history of present illness. I reviewed the images as well as the radiologist interpretation of these tests. Echocardiogram completed November 03, 2020 revealed moderate concentric left ventricular hypertrophy, hyperdynamic left ventricle, ejection fraction 70%, severely dilated left atrium. Electrocardiogram reveals sinus rhythm with occasional PVCs, 80 bpm. Coding Level of Care Code 07867 Initial Inpt Care Lvl 3 Diagnoses Dementia F03.90
[2020-11-09 10:13] LABS: Bilirubin,Total 0.5 mg/dl (0.2-1); Magnesium 2.4 mg/dl (1.8-2.4); Phosphorus 3.9 mg/dl (2.5-4.9)
--- NOTE | 2020-11-09 11:25 | Pharmacy Report ---
Pharmacy PN Initial Consult - Date of Service November 09, 2020 - Scope Pharmacy has been consulted to manage parenteral nutrition orders and order appropriate labs. As part of the Nutrition Support Team guidelines, pharmacy will work in conjunction with dietary when determining the patients caloric needs. - Subjective The patient is a 80 year old M admitted on 11/02/20 13:14 for CONFUSION. Patient is to receive parenteral nutrition for prolonged NPO; unable to place N GT secondary to severe agitation. - Objective Height: 5 ft 6 in Weight: 67.1 kg Intake & Output (Last 24Hrs): Intake & Output 11/07/20 11/08/20 11/09/20 11/10/20 06:59 06:59 06:59 06:59 Intake Total 1005.333 / 2643.773 7972.000 / 5344.345 4228 / 1350 Output Total 100 / 100 Balance 1005.333 / 4074.564 7670.000 / 5333.502 5405 / 1350 Weight 67.1 kg Laboratory Data (Last 24 Hrs):: 11/08/20 11/09/20 11/09/20 22:28 07:18 07:18 Sodium 143 144 Potassium 4.7 4.9 Chloride 112 H 116 H Carbon Dioxide 17 L 18 L BUN 71 H 76 H Creatinine 1.56 H 1.59 H Glucose 143 H 168 H Calcium 9.8 9.9 Phosphorus 3.9 Magnesium 2.4 Total Bilirubin 0.6 0.5 AST 29 33 ALT 19 20 Alkaline Phosphatase 94 94 Albumin 2.9 L Triglycerides 55 Nutrition Assessment:: Please refer to the Notes section of the EMR for the most recent automobile mechanic supervisor note. - Plan For day 1 of PN administration, the following will be ordered: Macronutrients Amino acids 75 grams/day Dextrose 100 grams/day Lipids 40 grams/day Micronutrients Sodium phosphate 15 MMol Potassium acetate 20 mEq Multivitamins 10 mL Trace Elements 10 mL Additional additives: Thiamine 100mg + Folic Acid 1mg Total volume 1537 mL to be infused over 24 hrs will provide 1040 kcal/day Final osmolarity 899 mOsm/L (maximum for PPN is 900 mOsm/L) Labs to be ordered per PN order protocol Pharmacy will follow and adjust parenteral nutrition orders on a daily basis. Thank you.
[2020-11-09] MEDS: cefTRIAXone SODIUM 1,000 MG in DEXTROSE 5% 50 ML IV SCH (12:52)
[2020-11-09] MEDS ORDERED: DEXTROSE 10% 1,000 ML IV PRN (16:00)
[2020-11-09] MEDS ORDERED: TPN IV SCH (16:00)
[2020-11-09] MEDS ORDERED: PERIPHERAL PN IV SCH (16:00)
[2020-11-09 16:41] LABS: Allen Test POS (Pos); Base Excess ABG -7.3 mEq/L (-9-1.8); HCO3 ABG 17 mmol/L (19-24); Oxygen Saturation ABG 97.6 % (90-95); PCO2 ABG 32 mmHg (35-46); PO2 ABG 102 mmHg (80-95); pH ABG 7.35 (7.35-7.45)
[2020-11-09] MEDS ORDERED: STAT IV STA (16:50)
[2020-11-09 16:51] LABS: Potassium 5.1 mmol/L (3.5-5.1)
[2020-11-09 16:55] LABS: Calcium 9.9 mg/dl (8.5-10.1); Creatinine Clr Calc Pharmacy 33.4 ml/min; Est GFR (Non-African American) 41.4 ml/min; Magnesium 2.3 mg/dl (1.8-2.4)
[2020-11-09 17:00] LABS: Albumin Level 2.8 gm/dl (3.4-5.0); Bilirubin Direct 0.1 mg/dl (0-0.2); Bilirubin,Total 0.5 mg/dl (0.2-1); Phosphorus 3.4 mg/dl (2.5-4.9); Total Protein 7.4 gm/dl (6.4-8.2)
[2020-11-09] MEDS ORDERED: SODIUM BICARBONATE 8.4% 75 MEQ in DEXTROSE 5% 1,000 ML IV SCH (17:00)
[2020-11-09] MEDS ORDERED: SODIUM BICARB 8.4% INJ 50 MEQ/50 ML SYR IV ONE (17:36)
[2020-11-09] MEDS ORDERED: fentaNYL citrate 100 MCG/2 ML VIAL ONE (17:54)
[2020-11-09] MEDS ORDERED: fentaNYL citrate 100 MCG/2 ML VIAL IV ONE (18:00)
[2020-11-09] MEDS ORDERED: SODIUM BICARB 8.4% INJ 50 MEQ/50 ML SYR IV STA (18:00)
[2020-11-09] MEDS ORDERED: VANCOMYCIN CONSULT ACTIVE PRN (18:09)
[2020-11-09] MEDS ORDERED: CEFEPIME 1,000 MG in SYRINGE 0 ML IV STA (18:09)
[2020-11-09] MEDS ORDERED: CEFEPIME CONSULT ACTIVE ONE (18:10)
[2020-11-09] MEDS ORDERED: MoRPHine SULFATE 2 MG/ML CARP IV PRN (18:23)
[2020-11-09] MEDS ORDERED: ATROPINE SULFATE 1% OP SOLN 5 ML BTL SL PRN (18:23)
[2020-11-09] MEDS ORDERED: LORazepam 0.5 MG TAB PO PRN (18:23)
[2020-11-09] MEDS ORDERED: ONDANSETRON 4 MG OD TAB SL PRN (18:23)
[2020-11-09] MEDS ORDERED: ONDANSETRON INJ 2 MG/ML 2 ML VIAL IV PRN (18:23)
[2020-11-09] MEDS ORDERED: LORazepam 0.5 MG/1 ML VIAL IV PRN (18:23)
[2020-11-09] MEDS ORDERED: STAT IV Infusion **Titration per Protocol STA (18:23)
[2020-11-09] MEDS ORDERED: MoRPHine SULFATE 4 MG/ML 1 ML CARP\\VIAL IV STA (18:29)
[2020-11-09] MEDS ORDERED: MoRPHine SULF/NSS 250 MG/250 ML BTL IV SCH (18:30)
--- NOTE | 2020-11-09 18:36 | Critical Care Consultation ---
Date of Consultation November 09, 2020 Assessment & Plan (1) Acute hypoxemic respiratory failure: I had lengthy discussions with the patient's family including sons Jacinto and Josue. Jacinto was indicating that he would like the patient to be on comfort measures only and would not like to proceed with aggressive measures such as intubation or mechanical ventilation. He was concerned that the rest of his family was unable to see the patient and there was a difference of opinion regarding the aggressiveness of care between him and his siblings. After further discussion with Josue, it was decided to go ahead and proceed with comfort measures only. Josue had numerous questions about the process of comfort measures versus intubation and mechanical ventilation. He ultimately decided along with his siblings that his father would not want such aggressive measures as intubation. I suspect the patient's demise was gradual but ultimately became critical today due to ongoing hypovolemia/dehydration due to poor p.o. intake. I also suspect that there is likely underlying sepsis of unclear source. Possible urinary tract origin. Chest imaging is not appear to be consistent with a pneumonia. He apparently is an aspiration risk. Patient was on ceftriaxone and Flagyl. Ultimately, his condition has deteriorated due to severe dementia (and a predisposition towards delirium) and a failure to thrive. A comfort measure order set has been instituted. Patient is currently on a morphine drip and we are titrating the drip upwards to improve his dyspnea. CRITICAL CARE TIME - I have personally spent 55 minutes of critical care time in the direct management of this patient. This is a life/limb threatening event. This includes time spent evaluating patient, direct bedside care, chart review, placing orders, interpretation of diagnostic studies, discussion with consultants, patient, and family members, as well as other required patient management activities. This time is exclusive of all separately billable procedures, and teaching time and separate from and in addition to any other critical care service time. 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 He was found in the neighborhood lying facedown. The family felt that the patient needs 24-hour supervision and thus he has remained in the hospital since 11/02/2020. He has become progressively more confused been unable to take food and p.o. medications due to encephalopathy. ICU was consulted today due to worsening tachypnea and the inability to control his oral secretions. When I presented to the hospital room, the patient was in severe respiratory distress with tachypnea and altered mental status. I am unable to get any history from the patient. I was able to get collateral history from nursing staff, hospitalist and the patient's family who are available at bedside. Apparently, there was some disagreement in the family with regards to his CODE STATUS. Spoke with 2 of the patient's sons at length. After lengthy discussion, it was decided that the best course of action would be to proceed with comfort measures rather than more aggressive measures such as intubated the patient for respiratory failure. Notably, the patient was seen by palliative care. Labs are reviewed from this afternoon which demonstrate a non-anion gap metabolic acidosis. Bicarb 20. Creatinine increasing to 1.54. ABG suggestive of anabolic acidosis with respiratory compensation. Chest x-ray personally reviewed by me demonstrates increased hilar markings. No discrete infiltrate seen. Pleural effusions. CT chest personally reviewed by me on 11/08/2020 was severely degraded due to motion artifact. There appeared to be bronchial malacia of the right mainstem bronchus. No discrete infiltrates noted. Pulmona ry artery trunk was enlarged. Allergies Allergy/AdvReac Type Severity Reaction Status Date / Time Penicillins Allergy Mild Rash Verified 11/02/20 11:38 metformin Allergy Unknown Diarrhea Verified 11/02/20 11:38 metoprolol Allergy Unknown Confusion Verified 11/02/20 11:38 zolpidem [From Ambien] Allergy Unknown Verified 11/02/20 11:38 Home Medications Medication Instructions Recorded Confirmed Type acetaminophen 500 mg tablet 1,000 mg PO TID PRN #90 tab 12/20/18 11/02/20 History blood sugar diagnostic #10 ea 12/20/18 04/24/20 History cholecalciferol (vitamin D3) 25 1,000 units PO QAM cap 12/20/18 11/02/20 History mcg (1,000 unit) capsule ferrous sulfate 325 mg (65 mg 325 mg PO QAM tab 12/20/18 11/02/20 History iron) tablet lancets #50 ea 12/20/18 07/25/20 History lisinopril 40 mg tablet 40 mg PO QAM #90 tab 12/18/19 11/02/20 Rx sitagliptin 100 mg tablet 100 mg PO QAM #30 tab 03/21/20 11/02/20 Rx apixaban 2.5 mg tablet 2.5 mg PO BID #60 tab 04/22/20 11/02/20 Rx digoxin 125 mcg (0.125 mg) tablet 125 mcg PO QAM #90 tab 04/24/20 11/02/20 Rx atorvastatin 40 mg PO QAM 11/02/20 11/02/20 History glipizide 20 mg PO QAM 11/02/20 11/02/20 History sertraline 100 mg PO QAM 11/02/20 11/02/20 History Patient History Medical History (Updated 11/09/20 @ 18:52 by Ignacio Cordova MD) Acute encephalopathy Acute hypoxemic respiratory failure Anemia CAD (coronary artery disease) Cerebral atherosclerosis Chronic anticoagulation Delirium Dyslipidemia Gastroesophageal reflux disease GI (gastrointestinal bleed) Hypercalcemia Hyperparathyroidism Hypertension Insomnia Lower back pain Mild cognitive impairment Osteoarthritis of sternoclavicular joint Permanent atrial fibrillation 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 Vitamin D deficiency Surgical History 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) S/P aortic valve replacement S/P CABG (coronary artery bypass graft) S/P cataract surgery S/P tonsillectomy S/P total knee arthroplasty Family History Mother Coronary heart disease Myocardial infarction Father Coronary heart disease Myocardial infarction Brother Dementia Denies family history of Ovarian cancer Prostate cancer Breast cancer Colorectal cancer Social History Smoking Status: Never smoker Age Quit Using Tobacco: 42; Second Hand Exposure: No; Hx Alcohol Use: Yes Hx Substance Use: No Preferred Language: Bhutanese Communication Ability: Effective Visual Impairment: No Limitations Hearing Ability: Normal Gas Station Supervisor Required: No Beliefs That Will Affect Care: None marital status: / Current Living Situation: Alone Current Living Situation Comment: Home alone current occupational status: retired Feels Safe at Home: Yes Safety Concerns: Feels Safe At This Time Childhood Exposure to Second-Hand Smoke: Yes during the past year weight has: remained stable Dental Care, Regularly: No Physical Activity Frequency: Daily Seatbelt Use: always Sunscreen Use: No Assistive Devices: Oxygen - Continuous Review of Systems Review of Systems: All systems reviewed & are unremarkable except as noted in HPI & below Physical Exam Constitutional: + ill appearing, + altered mental status and + in distress ENMT: external ear and nose normal, oropharynx normal Neck: normal visual inspection Respiratory: + labored breathing, + retractions, + abnormal respiratory pattern and + tachypneic Cardiovascular: Rate/Rhythm: + tachycardic Heart Sounds: normal S1, normal S2 and + murmur Gastrointestinal (Abdomen): normal bowel sounds, soft, nontender, no hepatosplenomegaly Musculoskeletal: Head/Neck/Chest: normocephalic Peripheral cyanosis noted. Skin: no rashes, warm and dry Neurologic: + confused Patient is essentially obtunded. Psychiatric: A+Ox3, euthymic affect Results & Data Results & Data ([facility]) Vital Signs (Past 12 Hours) Vital Signs Temp Pulse Resp BP BP Pulse Ox 11/09/20 17:24 99.9 F H 122 H 36 H 159/75 H 96 11/09/20 16:54 122 H 28 H 95 11/09/20 16:06 124 H 136/80 96 11/09/20 14:50 98.1 F 122 H 20 130/76 94 11/09/20 07:54 98.3 F 118 H 25 H 113/73 96 vital signs, labs and imaging reviewed, personally Coding Level of Care Code Critical Care 1st 30-74 mins Diagnoses Acute hypoxemic respiratory failure J96.01 Acute encephalopathy G93.40 Acute kidney failure N17.9 Dementia F03.90 Delirium R41.0 Time Spent (min) 55
[2020-11-09] MEDS ORDERED: VANCOMYCIN HCL 1,500 MG in SODIUM CHLORIDE 0.9% 500 ML IV ONE (18:45)
[2020-11-09] MEDS ORDERED: CEFEPIME 2,000 MG in SYRINGE 0 ML IV ONE (18:45)
[2020-11-09] MEDS ORDERED: traZODone HCL 50 MG TAB PO SCH (21:00)
--- NOTE | 2020-11-09 21:09 | XRay Report ---
XR chest 1V portable CLINICAL HISTORY: CHEST XR COMPARISON STUDY: November 08, 2020 FINDINGS: No pneumothorax. No pleural effusion. Slightly hazy opacity seen within left retrocardiac region, appears similar to prior study. Cardiomediastinal silhouette is stable since prior. Aorta is calcified. Heavy calcifications of guerrero l annulus are seen. Prosthetic aortic valve is seen in unchanged position. No significant pulmonary vascular congestion.. Osseous structures: Degenerative changes of the spine. Midline sternotomy wires are again seen. IMPRESSION: 1. Slightly hazy opacity within left retrocardiac region, unchanged since prior study and could repr esent atelectasis or infiltrate. ACT 112: Negative or not required by law. The above report was generated using voice recognition software. It may contain grammatical, syntax o r spelling errors. Electronically signed by: Mary Mendoza DO 11/09/2020 9:07 PM
--- NOTE | 2020-11-09 22:45 | Hospitalist Progress Note ---
Date of Service November 09, 2020 Assessment & Plan (1) Multi-infarct dementia: Patient CT scan and history consistent with worsening multi-infarct dementia. - MRI brain was very limited, but shows small vessel disease. - Continue aspirin. - Patient will need placement. He has significant memory deficits, and I do not think he is capable of making his own medical decisions. He cannot tell me about his medical issues, what we could do to treat them, or alternatives to our offered treatment. He cannot recall his home or safety plans. - PT/OT evaluation, CM working toward [facility]. Will be tough to place as he is quite aggressive. Will start Seroquel 25 mg PO BID to help. This has a known black box warning for use in the elderly with dementia; however, given his agitation and aggression, he is posing a risk to himself. On 11/06 Patient has been asleep. Patient appears to not tolerate the BID dose of seroquel. Will given an HS dose today and see how patient responds in AM without the morning dose. Do not want to alter day night cycle. Had discussion with Jacinto. Appears siblings have not been communicating as palliative care has been talking with Gabino/Jostin. Explained that patient has dementia and is having difficulty eating. Reviewing notes from PCP, it appears he has a poor prognosis. Family needs to discuss goals of care moving forward On 11/07 Patient is more awake, Will try seroquel this PM. Gabino will be coming in tomorrow. Will try to treat reversible causes for his delirum. If patient does not improve, then will need to discuss goals of care. On 11/08 Patient again is sedated. Patient received PRN lorazepam and seroquel during evening shift as patient was agitated. Had multiple discussions with son Truman (GABINO). Appears family is not ready to go the comfort route. He is frustrated at how he has deteriorated during this hospital stay. Despite the fact that patient has advanced dementia. Explained that this is likely a combination of his advance dementia as well as his delirium. Patient was very agitated during hospital stay and required benzos and seroquel by previous provider. Explained that we have been titrating his medications lower. He is asking for a second opinion. I explained to the family that I had inherited him in this state and am treating reversible causes for his delirium: antibiotics for possible aspiration pneumonia, decreasing benzo, keeping day night cycle, acute kidney injury. Son is asking about stopping seroquel. Explained that he was on a higher dose and this has been titrating down. During hospital stay he has taken lorazepam and olanzapine which likely has played a role with his sedation. He also likely has hospital acquired delirium as family states that he has had this in the past. Gabino asked for a second opinion on treating his delirium. D/W neurology who agrees with titrating the seroquel, may consider using trazodone. Patient is sedated tonight and likely willl not require any medications. If patient does not awake, will discuss possibility of PPN Also started atropine and scopolamine patch and suction to help. Will have another discussion with Gabino tomorrow. On 11/09 Between 8:00 to 9:00 Had discussion with overnight resident and overnight critical care provider. Patient had increased work of breathing overnight. Likely multifactorial: but metabolic acidosis was the driving force. Gabino was against intubation as his mother had a difficult experience in the past and while intubated. Transfer to ICU was held by overnight team due to fact that family did not want to intubate the patient. Patient was tachypnic overnight and remains tachypnic in the AM, but has a better. Had discussion with patient Gabino in the morning and updated him. Explained his hospital course in detail, and answered his questions. Patient though remains tachypnic but breathing appears to be doing better this AM. Explained to family that we will continue to treat each possible reversible cause of his delirium, including: CHARLES, possible infection, nutrition, medications. Will continue with multiple suction of secretions and atropine drops and scopolamine patch Explained to son about possibly starting PPN after explaining multiple nutrition options. NG tube feeding is another option. However given how agitated he gets, he may not tolerate NG tube feeding and may also aspirate. Explained risk and benefits. 2-:30 to 7:pm By the afternoon, patient appeared to have more increased work of breathing. Even though his creatinine and BUN was improving, he still had a metabolic acidosis and was compensating (increased workload: using accessory muscles) for his breathing. Continue to have difficult clearing secretions. ABG also pointed towards metabolic acidosis. Even though he did not meet criteria for a bicarb drip, Bicarb drip was ordered as intubation was not an option to perhaps counteract his metabolic acidosis sooner. Given that he was somewhat lethargic, explained that BIPAP would not be an option at this point given that he cannot protect his airways. Options were to continue with our plan, and try to focus on reversible causes of his deliruim however patient appeared to be suffering, and in distress, vs intubation vs focusing on comfort. Gabino at that point was leaning towards intubation. Critical care consult was ordered. Assistant Auditor was agreeable that patient required either intubation or focusing on comfort measures. Gabion wanted to discuss further with family. Assistant Auditor recommended to transfer patient to the ICU, in case intubation was chosen by the family. Once in the ICU, Assistant Auditor had a discussion with the family and family decided on going to the comfort route. Antibiotics and IVF were stopped. Patient was transferred back to the floor on comfort measures. (2) Dysphagia: Son mentioned that the patient is having some swallowing difficulty. Patient denied this. - Seen on 11/03. MACHINE STAKER recommended: * Easy to chew diet * Fully alert and upright for eating * Usual aspiration precautions (3) Permanent atrial fibrillation: This appears to be paroxysmal atrial fibrillation the patient is currently in normal sinus rhythm. - Continue Eliquis 2.5 mg PO BID (4) Hypertension: BP today was 120/75. - Continue lisinopril 40 mg PO daily (5) CAD (coronary artery disease): No complaint of chest pain. - Low-dose aspirin as noted above. 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 A1c was 12.1%. - Diabetic diet - Sliding scale insulin -> Blood sugars generally at 125 - 200. (7) DVT prophylaxis: Eliquis for afib (8) Acute kidney failure: Plan was to continue with IVF and closely monitor volume status Likely attributed to poor oral intake. Creatinine peaked at 2.49. Improving, now at 1.5 Admission and Anticipated Discharge Date Admission Date: November 02, 2020 Subjective Patient remains lethargic. Review of Systems Review of Systems: Unobtainable due to cognitive status Physical Exam Physical Exam: Constitutional: WD/WN, vitals as above, somnolent Respiratory: increased work of breathing, using accesory muscles to breath. Cardiovascular: RRR, no murmur, no edema Gastrointestinal (Abdomen): Inspection/Auscultation: abdomen normal to inspecti on; abdomen not distended Psychiatric: Orientation: + not alert, + not oriented to place, + not oriented to time and + uncooperative Results & Data Results & Data ([facility]) Vital Signs (Past 12 Hours) Vital Signs Temp Pulse Pulse Resp BP BP BP 11/09/20 18:04 121 H 27 H 138/89 11/09/20 18:00 114 H 28 H 117/81 11/09/20 17:52 120 H 34 H 11/09/20 17:49 122 H 29 H 162/100 H 11/09/20 17:24 37.7 C H 122 H 36 H 159/75 H 11/09/20 16:54 122 H 28 H 11/09/20 16:06 124 H 136/80 11/09/20 14:50 36.7 C 122 H 20 130/76 Pulse Ox 11/09/20 18:04 96 11/09/20 18:00 98 11/09/20 17:52 97 11/09/20 17:49 97 11/09/20 17:24 96 11/09/20 16:54 95 11/09/20 16:06 96 11/09/20 14:50 94 PG Care Time/CCT Total # of Minutes Spent Total Time Spent with Patient: Total time spent is greater than 50% in coordination of care (as documented) at patient's floor/unit and/or counseling patient: Critical Care Time: Yes Total Critical Care Time: 50 I have personally spent 50 minutes of critical care time in the direct management of this patient. This is a life/limb threatening event. This includes time spent evaluating patient, direct bedside care, chart review, placing orders, interpretation of diagnostic studies, discussion with consultants, patient, and family members, as well as other required patient management activities. This time is exclusive of all separately billable procedures, and teaching time and separate from and in addition to any other critical care service time. 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
--- NOTE | 2020-11-10 10:20 | Discharge Summary ---
Date of Service November 10, 2020 Admission HPI Per Admitting Provider This is an 80-year-old male with past medical history of paroxysmal atrial fibrillation, poorly controlled type 2 diabetes mellitus, confusion presents today with signs secondary to worsening confusion. Patient is not able to provide much history, history as per son. I Son states patient has had been having ongoing issues with dementia which seems to be worsening. He states on 2 different occasions, the patient is wandered out of the house in the middle of the night and was found lying facedown in the neighborhood. He feels the patient is very unsteady on his feet with any ambulation. He also describes some difficulty with swallowing. On review of outpatient records, some of the patient's medications been discontinued including Aricept as the patient was declining despite treatment. Today, as the son feels the patient is no longer safe without 24-hour supervision which she is unable to provide and would like the patient to be admitted to our facility for eventual placement to dementia unit. The patient herself is awake and alert. He is very confused and cannot answer most questions. He does have a good sense of humor and does not appear to be in any significant distress. Principal Diagnosis Acute respiratory failure (hypoxia) due to delirium and dementia Discharge Exam refer to note Discharge Data Allergies Allergy/AdvReac Type Severity Reaction Status Date / Time Penicillins Allergy Mild Rash Verified 11/02/20 11:38 metformin Allergy Unknown Diarrhea Verified 11/02/20 11:38 metoprolol Allergy Unknown Confusion Verified 11/02/20 11:38 zolpidem [From Ambien] Allergy Unknown Verified 11/02/20 11:38 Consultations 11/02/20 12:29 ED Decision to Admit Stat 11/02/20 21:10 Consult Cardiology Routine 11/05/20 18:35 Consult Palliative Care Routine 11/08/20 17:10 Consult Neurology Routine 11/09/20 18:44 Consult Coal Equipment Operator Routine Ordered Studies 11/02/20 10:44 CT head/brain wo con Stat 11/02/20 16:12 MR brain wo con Routine 11/08/20 23:18 CT chest diagnostic wo con Urgent 11/08/20 23:21 CT head/brain wo con Urgent Hospital Course (1) Multi-infarct dementia: Patient CT scan and history consistent with worsening multi-infarct dementia. - MRI brain was very limited, but shows small vessel disease. - Continue aspirin. - Patient will need placement. He has significant memory deficits, and I do not think he is capable of making his own medical decisions. He cannot tell me about his medical issues, what we could do to treat them, or alternatives to our offered treatment. He cannot recall his home or safety plans. - PT/OT evaluation, CM working toward [facility]. Will be tough to place as he is quite aggressive. Will start Seroquel 25 mg PO BID to help. This has a known black box warning for use in the elderly with dementia; however, given his agitation and aggression, he is posing a risk to himself. On 11/06 Patient has been asleep. Patient appears to not tolerate the BID dose of seroquel. Will given an HS dose today and see how patient responds in AM without the morning dose. Do not want to alter day night cycle. Had discussion with Jacinto. Appears siblings have not been communicating as palliative care has been talking with Gabino/Jostin. Explained that patient has dementia and is having difficulty eating. Reviewing notes from PCP, it appears he has a poor prognosis. Family needs to discuss goals of care moving forward On 11/07 Patient is more awake, Will try seroquel this PM. Gabino will be coming in tomorrow. Will try to treat reversible causes for his delirum. If patient does not improve, then will need to discuss goals of care. On 11/08 Patient again is sedated. Patient received PRN lorazepam and seroquel during evening shift as patient was agitated. Had multiple discussions with son Truman (GABINO). Appears family is not ready to go the comfort route. He is frustrated at how he has deteriorated during this hospital stay. Despite the fact that patient has advanced dementia. Explained that this is likely a combination of his advance dementia as well as his delirium. Patient was very agitated during hospital stay and required benzos and seroquel by previous provider. Explained that we have been titrating his medications lower. He is asking for a second opinion. I explained to the family that I had inherited him in this state and am treating reversible causes for his delirium: antibiotics for possible aspiration pneumo amanda, decreasing benzo, keeping day night cycle, acute kidney injury. Son is asking about stopping seroquel. Explained that he was on a higher dose and this has been titrating down. During hospital stay he has taken lorazepam and olanzapine which likely has played a role with his sedation. He also likely has hospital acquired delirium as family states that he has had this in the past. Gabino asked for a second opinion on treating his delirium. D/W neurology who agrees with titrating the seroquel, may consider using trazodone. Patient is sedated tonight and likely willl not require any medications. If patient does not awake, will discuss possibility of PPN Also started atropine and scopolamine patch and suction to help. Will have another discussion with Gabino tomorrow. On 11/09 Between 8:00 to 9:00 Had discussion with overnight resident and overnight critical care provider. Patient had increased work of breathing overnight. Likely multifactorial: but metabolic acidosis was the driving force. Gabino was against intubation as his mother had a difficult experience in the past and while intubated. Transfer to ICU was held by overnight team due to fact that family did not want to intubate the patient. Patient was tachypnic overnight and remains tachypnic in the AM, but has a better. Had discussion with patient Gabino in the morning and updated him. Explained his hospital course in detail, and answered his questions. Patient though remains tachypnic but breathing appears to be doing better this AM. Explained to family that we will continue to treat each possible reversible cause of his delirium, including: CHARLES, possible infection, nutrition, medications. Will continue with multiple suction of secretions and atropine drops and scopolamine patch Explained to son about possibly starting PPN after explaining multiple nutrition options. NG tube feeding is another option. However given how agitated he gets, he may not tolerate NG tube feeding and may also aspirate. Explained risk and benefits. 2-:30 to 7:pm By the afternoon, patient appeared to have more increased work of breathing. Even though his creatinine and BUN was improving, he still had a metabolic acidosis and was compensating (increased workload: using accessory muscles) for his breathing. Continue to have difficult clearing secretions. ABG also pointed towards metabolic acidosis. Even though he did not meet criteria for a bicarb drip, Bicarb drip was ordered as intubation was not an option to perhaps counteract his metabolic acidosis sooner. Given that he was somewhat lethargic, explained that BIPAP would not be an option at this point given that he cannot protect his airways. Options were to continue with our plan, and try to focus on reversible causes of his deliruim however patient appeared to be suffering, and in distress, vs intubation vs focusing on comfort. Gabino at that point was leaning towards intubation. Critical care consult was ordered. Coal Equipment Operator was agreeable that patient required either intubation or focusing on comfort measures. Gabino wanted to discuss further with family. Coal Equipment Operator recommended to transfer patient to the ICU, in case intubation was chosen by the family. Once in the ICU, Coal Equipment Operator had a discussion with the family and family decided on going to the comfort route. Antibiotics and IVF were stopped. Patient was transferred back to the floor on comfort measures. On 11/10 Patient at 9:04 Respiratory failure due to metabolic acidosis due to severe deentia and delirium from failure to thrive. (2) Dysphagia: Son mentioned that the patient is having some swallowing difficulty. Patient denied this. - Seen on 11/03. PLANT SAFETY LEADER recommended: * Easy to chew diet * Fully alert and upright for eating * Usual aspiration precautions (3) Permanent atrial fibrillation: This appears to be paroxysmal atrial fibrillation the patient is currently in normal sinus rhythm. - Continue Eliquis 2.5 mg PO BID (4) Hypertension: BP today was 120/75. - Continue lisinopril 40 mg PO daily (5) CAD (coronary artery disease): No complaint of chest pain. - Low-dose aspirin as noted above. 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 A1c was 12.1%. - Diabetic diet - Sliding scale insulin -> Blood sugars generally at 125 - 200. (7) DVT prophylaxis: Eliquis for afib (8) Acute kidney failure: Plan was to continue with IVF and closely monitor volume status Likely attributed to poor oral intake. Creatinine peaked at 2.49. 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
--- NOTE | 2020-11-13 14:22 | Death Pronouncement Note ---
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
== END 2020-11-10 11:30 | disposition expired | DRG 884 ==
LOC: ED 10:11 → SUATTDRO 13:14 → 2S 13:14 → 3N 11-05 14:00 → 1E 11-09 18:02 → 3N 11-09 21:52